=== PATIENT | male | born 1995 | race Caucasian/White ===

== ENCOUNTER 2017-09-14 17:38 | Emergency (ER) | payer SELFPAY ==
[~2017-09-14 17:38] MED LIST: ALB0.5; AMO875 PO; CEP500 PO; FEXO30TA36 PO; HYDR-3140 PO; IBU200 PO; LOR5/325 PO; TRA50 PO
--- NOTE | 2017-09-14 18:27 | ER Report ---
History and Physical Time Seen By MD: 18:27 Hx. of Stated Complaint: pain started in left groin/hip/abd area. painful to sit or stand. any mpotion makes it worse. painful to urine for about a month HPI/ROS CHIEF COMPLAINT: groin, testicular and abdominal pain HISTORY OF PRESENT ILLNESS: This is a 22 year old male. He is having left sided groin, lower abdomen and left testicular pain. This started yesterday. Slowly worsening. No radiation. Worsens with movement. No masses in the scrotum or testicle, but left side seems to be riding higher. No injury. No prior history or abdominal or testicular problems. Family history of renal cancer. No fevers or chills. No changes in bowel or bladder function. No increased pain with bowel movement. Specifically no blood in stool or urine and no diarrhea. Does have some increased pain with urination. Had an erection today, which seemed to worsen pain. No history of sexually transmitted disease. Sexually active with one partner, his fiance. She has had recent STD testing which was negative. Allergies: Coded Allergies: No Known Drug Allergies (Verified , 09/14/17) Home Meds Active Scripts Oxycodone Hcl/Acetaminophen (PERCOCET 5-325 MG TABLET) 1 Each Tablet, 1 EACH PO Q4H Y for PAIN, #10 TAB 0 Refills Prov:ERI ZAMBRANO MD 09/14/17 Levofloxacin 500 Mg Tab (LEVAQUIN 500 MG TAB) 500 Mg Tablet, 500 MG PO QDAY, # 10 TAB 0 Refills Prov:ERI ZAMBRANO MD 09/14/17 Reviewed Nurses Notes: Yes Hx Smoking: Yes Smoking Status: Current: Every Day Smoker Hx Substance Use Disorder: Yes ([facility]) Hx Alcohol Use: Yes (binges) Constitutional Vital Sign - Last 24 Hours 09/14/17 09/14/17 09/14/17 09/14/17 18:08 18:10 18:10 18:23 Temp 100.0 Pulse ??? 118 117 Resp 16 B/P (MAP) 146/93 146/93 (110) Pulse Ox 97 95 O2 Delivery Room Air 09/14/17 09/14/17 09/14/17 09/14/17 18:30 18:38 18:53 18:58 Pulse 115 ??? 98 B/P (MAP) 134/83 (100) Pulse Ox 94 97 09/14/17 09/14/17 19:00 19:30 B/P (MAP) 129/87 (101) 120/81 (94) Intake and Output 09/14/17 09/14/17 09/15/17 15:00 23:00 07:00 Intake Total 900 ml Balance 900 ml Physical Exam General Appearance: The patient is alert. No acute distress. Eyes: Pupils are equal, round. No pallor, icterus or injection. ENT: Mucous membranes are moist. Respiratory: Lungs are clear to auscultation. Cardiovascular: Regular rate and rhythm. No murmurs, gallops or rubs. Gastrointestinal: Abdomen with discomfort in the left lower abdomen with palpation, but abdomen is soft. No bulging of the abdomen/inguinal area with cough. Nondistended. No masses or organomegaly. Normal active bowel sounds. No costovertebral angle tenderness with percussion. Genitourinary: Tenderness and fullness with palpation over the epididymis. No pain in the rest of the testicle on left. Right side is normal and non-tender. No bulging into the scrotum/inguinal canal with cough. Some mild discomfort in the upper scrotum on the left, but no discrete masses, but fullness in the upper scrotum bilaterally. Normal penis, no rashes or discharge. Neurological: Alert and oriented x3. Skin: Warm and dry. No rashes. Musculoskeletal: No pain below the inguinal ligament or scrotum into the musculoskeletal area. DIFFERENTIAL DIAGNOSIS: After history and physical exam, differential diagnosis was considered for pain in the left abdomen/groin/testicle, will obtain testicular ultrasound, labs and CT scan abd/pelvis. Medical Decision Making Data Points Result Diagram: 09/14/17185209/14/173 Laboratory Hematology Test 09/14/17 18:53 09/14/17 19:35 Red Blood Count 5.09 M/uL (4.00-5.60) Mean Corpuscular Volume 96.5 fL (80.0-96.0) Mean Corpuscular Hemoglobin 32.7 pg (26.0-33.0) Mean Corpuscular Hemoglobin Concent 33.9 g/dL (32.0-36.0) Red Cell Distribution Width 13.6 % (11.5-14.5) Mean Platelet Volume 8.0 fL (7.2-11.1) Neutrophils (%) (Auto) 77.4 % (39.4-72.5) Lymphocytes (%) (Auto) 13.7 % (17.6-49.6) Monocytes (%) (Auto) 7.0 % (4.1-12.4) Eosinophils (%) (Auto) 1.5 % (0.4-6.7) Basophils (%) (Auto) 0.4 % (0.3-1.4) Nucleated RBC Relative Count (auto) 0.0 /100WBC Neutrophils # (Auto) 10.7 K/uL (2.0-7.4) Lymphocytes # (Auto) 1.9 K/uL (1.3-3.6) Monocytes # (Auto) 1.0 K/uL (0.3-1.0) Eosinophils # (Auto) 0.2 K/uL (0.0-0.5) Basophils # (Auto) 0.1 K/uL (0.0-0.1) Nucleated RBC Absolute Count (auto) 0.00 K/uL Sodium Level 138 mmol/L (137-145) Potassium Level 4.2 mmol/L (3.5-5.0) Chloride Level 100 mmol/L (98-107) Carbon Dioxide Level 26 mmol/L (22-30) Blood Urea Nitrogen 9 mg/dl (9-21) Creatinine 0.80 mg/dl (0.66-1.25) Glomerular Filtration Rate Calc > 60.0 Random Glucose 88 mg/dl (75-110) Calcium Level 9.3 mg/dl (8.4-10.2) Total Bilirubin 0.3 mg/dl (0.2-1.3) Aspartate Amino Transf (AST/SGOT) 22 U/L (0-35) Alanine Aminotransferase (ALT/SGPT) 38 U/L (0-56) Alkaline Phosphatase 92 U/L (0-126) Total Protein 7.7 gm/dl (6.3-8.2) Albumin 4.5 g/dl (3.5-5.0) Urine Color Yellow Urine Clarity Clear Urine pH 7.0 pH (4.8-9.5) Urine Specific [place] 1.009 Urine Protein Negative mg/dL (NEGATIVE) Urine Glucose (UA) Negative mg/dL (NEGATIVE) Urine Ketones Negative mg/dL (NEGATIVE) Urine Blood Negative (NEGATIVE) Urine Nitrite Negative (NEGATIVE) Urine Bilirubin Negative (NEGATIVE) Urine Urobilinogen Negative mg/dL (0.2-1.9) Urine Leukocyte Esterase Trace (NEGATIVE) Urine RBC 2 /HPF (0-2/HPF) Urine WBC 8 /HPF (0-5/HPF) Urine Squamous Epithelial Cells None /LPF (</=FEW) Urine Bacteria Negative /HPF (NONE-FEW) Urine Mucus None /HPF (NONE-FEW) Chemistry Test 09/14/17 18:53 09/14/17 19:35 White Blood Count 13.8 k/uL (4.5-11.0) Red Blood Count 5.09 M/uL (4.00-5.60) Hemoglobin 16.6 g/dL (14.0-18.0) Hematocrit 49.1 % (42.0-52.0) Mean Corpuscular Volume 96.5 fL (80.0-96.0) Mean Corpuscular Hemoglobin 32.7 pg (26.0-33.0) Mean Corpuscular Hemoglobin Concent 33.9 g/dL (32.0-36.0) Red Cell Distribution Width 13.6 % (11.5-14.5) Platelet Count 192 K/uL (150-450) Mean Platelet Volume 8.0 fL (7.2-11.1) Neutrophils (%) (Auto) 77.4 % (39.4-72.5) Lymphocytes (%) (Auto) 13.7 % (17.6-49.6) Monocytes (%) (Auto) 7.0 % (4.1-12.4) Eosinophils (%) (Auto) 1.5 % (0.4-6.7) Basophils (%) (Auto) 0.4 % (0.3-1.4) Nucleated RBC Relative Count (auto) 0.0 /100WBC Neutrophils # (Auto) 10.7 K/uL (2.0-7.4) Lymphocytes # (Auto) 1.9 K/uL (1.3-3.6) Monocytes # (Auto) 1.0 K/uL (0.3-1.0) Eosinophils # (Auto) 0.2 K/uL (0.0-0.5) Basophils # (Auto) 0.1 K/uL (0.0-0.1) Nucleated RBC Absolute Count (auto) 0.00 K/uL Glomerular Filtration Rate Calc > 60.0 Calcium Level 9.3 mg/dl (8.4-10.2) Total Bilirubin 0.3 mg/dl (0.2-1.3) Aspartate Amino Transf (AST/SGOT) 22 U/L (0-35) Alanine Aminotransferase (ALT/SGPT) 38 U/L (0-56) Alkaline Phosphatase 92 U/L (0-126) Total Protein 7.7 gm/dl (6.3-8.2) Albumin 4.5 g/dl (3.5-5.0) Urine Color Yellow Urine Clarity Clear Urine pH 7.0 pH (4.8-9.5) Urine Specific [place] 1.009 Urine Protein Negative mg/dL (NEGATIVE) Urine Glucose (UA) Negative mg/dL (NEGATIVE) Urine Ketones Negative mg/dL (NEGATIVE) Urine Blood Negative (NEGATIVE) Urine Nitrite Negative (NEGATIVE) Urine Bilirubin Negative (NEGATIVE) Urine Urobilinogen Negative mg/dL (0.2-1.9) Urine Leukocyte Esterase Trace (NEGATIVE) Urine RBC 2 /HPF (0-2/HPF) Urine WBC 8 /HPF (0-5/HPF) Urine Squamous Epithelial Cells None /LPF (</=FEW) Urine Bacteria Negative /HPF (NONE-FEW) Urine Mucus None /HPF (NONE-FEW) Urinalysis Test 09/14/17 19:35 Urine Color Yellow Urine Clarity Clear Urine pH 7.0 pH (4.8-9.5) Urine Specific [place] 1.009 Urine Protein Negative mg/dL (NEGATIVE) Urine Glucose (UA) Negative mg/dL (NEGATIVE) Urine Ketones Negative mg/dL (NEGATIVE) Urine Blood Negative (NEGATIVE) Urine Nitrite Negative (NEGATIVE) Urine Bilirubin Negative (NEGATIVE) Urine Urobilinogen Negative mg/dL (0.2-1.9) Urine Leukocyte Esterase Trace (NEGATIVE) Urine RBC 2 /HPF (0-2/HPF) Urine WBC 8 /HPF (0-5/HPF) Urine Squamous Epithelial Cells None /LPF (</=FEW) Urine Bacteria Negative /HPF (NONE-FEW) Urine Mucus None /HPF (NONE-FEW) EKG/Imaging Imaging COMPUTED TOMOGRAPHY OF THE Abdomen and Pelvis with CONTRAST INDICATION: Left groin and abdominal pain. TECHNIQUE: Contiguous axial 3.[address] images were obtained through the abdomen and pelvis after the administration of 75 cc Isovue-370. Coronal and sagittal reformatted images were submitted. COMPARISON: CT abdomen and pelvis of December 28, 2010. FINDINGS: Lung bases: Clear. Liver and hepatic vasculature: The left lobe is elongated, a normal variant. No focal lesion. No ascites. Gallbladder and bile ducts: Normal gallbladder. Spleen: Normal Pancreas: Mild prominence of the pancreatic duct but no obstructive mass or stone no suggestion of pancreatitis. Adrenals: Normal Kidneys, ureters and bladder: No hydronephrosis or collecting system obstruction. Circumferential bladder wall thickening is noted. Retroperitoneum and aorta: Normal caliber aorta. No adenopathy. GI tract, mesentery and peritoneum: The bowel obstruction. No free fluid or free air. Several small bowel loops are fluid-filled and low abdomen, a nonspecific finding. Prostate: Grossly unremarkable prostate. A few vessels are prominent within the left scrotum, and there appears to be a small hydrocele. Small right-sided hydrocele is present as well. Bones and soft tissues: No acute osseous abnormality. IMPRESSION: 1. A few small bowel loops in the low pelvis are fluid-filled but not frankly distended. Finding is nonspecific and may be incidental. 2. Circumferential bladder wall thickening. Correlate with urinalysis. 3. A few vessels are prominent within the left scrotum, and there is a small left-sided hydrocele. There also appears to be a small right hydrocele. One of the following dose optimization techniques was utilized in the performance of this exam: Automated exposure control; adjustment of the mA and/ or kV according to the patient's size; or use of an iterative reconstruction technique. Specific details can be referenced in the facility's radiology CT exam operational policy. Report Dictated By: Josh Montes MD at 09/14/2017 8:03 PM INDICATION: left groin, abd, testicular pain. DATE: 09/14/2017 8:20 PM. TECHNIQUE: Testicular ultrasound. COMPARISON: CT abdomen and pelvis of the same day FINDINGS: The right testis measures 4.7 x 2.6 x 3.7 cm. Echogenicity is normal. There is a small hydrocele on the right. Normal Doppler waveform. The right epididymal head measures 0.8 cm. The left testis measures 4.0 x 2.5 x 3.6 cm. Normal Doppler waveform. There is a small hydrocele. The left testicle is hyperemic with respect to the right. Several veins are prominent within the left scrotum. The left epididymal head measures 1.3 cm and is hyperemic. IMPRESSION: 1. Hyperemia of the left testis and left epididymal head can be seen with epididymoorchitis. 2. Small varicocele on the left. 3. Bilateral small hydroceles. Report Dictated By: Josh Montes MD at 09/14/2017 8:20 PM ED Course/Re-evaluation Clinical Indication for ER IV: IV Access ED Course After my initial evaluation, it appears that the patient has epididymitis. Ultrasound and CT scan as noted above. Labs show a few cellular changes in the urine. Chlamydia and GC testing sent. Mild leukocytosis. Started Levaquin and using Ibuprofen and Percocet as needed for pain. If not improving, then will need follow-up with urology. Discussed the results and recommendations with the patient. Decision to Disposition Date: Sep 14, 2017 Decision to Disposition Time: 20:45 Depart Departure Latest Vital Signs Vital Signs Date Time Temp Pulse Resp B/P (MAP) Pulse Ox O2 Delivery O2 Flow Rate FiO2 09/14/17 19:30 120/81 (94) 09/14/17 18:58 98 97 09/14/17 18:10 100.0 16 Room Air Impression: Primary Impression: Epididymitis Condition: Improved Disposition: HOME OR SELF-CARE New Scripts Oxycodone Hcl/Acetaminophen (PERCOCET 5-325 MG TABLET) 1 Each Tablet 1 EACH PO Q4H Y for PAIN, #10 TAB 0 Refills Prov: ERI ZAMBRANO MD 09/14/17 Levofloxacin 500 Mg Tab (LEVAQUIN 500 MG TAB) 500 Mg Tablet 500 MG PO QDAY, #10 TAB 0 Refills Prov: ERI ZAMBRANO MD 09/14/17 Patient Instructions: Epididymitis (ED) Additional Instructions: Take the antibiotic Levofloxacin 500mg once a day for 10 days. Take Ibuprofen 200mg over the counter tablets, take 4 tablets every 8 hours as needed for pain. Percocet 5/325, one every 4 hours as needed for severe pain. If no improving, would recommend follow-up with Urology, Dr. Guzman or Dr. Zuniga. ERI ZAMBRANO MD Sep 14, 2017 18:27
[2017-09-14] MEDS ORDERED: MORPHINE 4 MG/ML SDV IVP ONE (18:35)
[2017-09-14] MEDS ORDERED: NS(*) 0.9% 1000 ML BAG 1,000 ML IV ONE (18:35)
[2017-09-14] MEDS ORDERED: ONDANSETRON 4 MG/2 ML VIAL IVP ONE (18:35)
[2017-09-14 19:00] LABS: PLATELET COUNT, AUTOMATED 192 K/uL (150-450)
[2017-09-14] MEDS ORDERED: IOPAMIDOL 76% 75 ML INFUS BTL 75 ML ONE (19:02)
[2017-09-14 19:30] VITALS: BP 120/81
--- NOTE | 2017-09-14 20:24 | RADIOLOGY IMAGING REPORT ---
FACILITY: [facility] PATIENT NAME: Khari Powers : 1995 MR: [id number] V: [id number] EXAM DATE: ORDERING PHYSICIAN: ERI ZAMBRANO TECHNOLOGIST: Location: [facility] [place] Patient: Khari Powers : 1995 Visit/Account:[id number] Date of Sevice: 09/14/2017 COMPUTED TOMOGRAPHY OF THE Abdomen and Pelvis with CONTRAST INDICATION: Left groin and abdominal pain. TECHNIQUE: Contiguous axial 3.[address] images were obtained through the abdomen and pelvis after the administration of 75 cc Isovue-370. Coronal and sagittal reformatted images were submitted. COMPARISON: CT abdomen and pelvis of December 28, 2010. FINDINGS: Lung bases: Clear. Liver and hepatic vasculature: The left lobe is elongated, a normal variant. No focal lesion. No asc ites. Gallbladder and bile ducts: Normal gallbladder. Spleen: Normal Pancreas: Mild prominence of the pancreatic duct but no obstructive mass or stone no suggestion of p ancreatitis. Adrenals: Normal Kidneys, ureters and bladder: No hydronephrosis or collecting system obstruction. Circumferential bl adder wall thickening is noted. Retroperitoneum and aorta: Normal caliber aorta. No adenopathy. GI tract, mesentery and peritoneum: The bowel obstruction. No free fluid or free air. Several small b owel loops are fluid-filled and low abdomen, a nonspecific finding. Prostate: Grossly unremarkable prostate. A few vessels are prominent within the left scrotum, and the re appears to be a small hydrocele. Small right-sided hydrocele is present as well. Bones and soft tissues: No acute osseous abnormality. IMPRESSION: 1. A few small bowel loops in the low pelvis are fluid-filled but not frankly distended. Finding is n onspecific and may be incidental. 2. Circumferential bladder wall thickening. Correlate with urinalysis. 3. A few vessels are prominent within the left scrotum, and there is a small left-sided hydrocele. Th ere also appears to be a small right hydrocele. One of the following dose optimization techniques was utilized in the performance of this exam: Autom ated exposure control; adjustment of the mA and/or kV according to the patient's size; or use of an i terative reconstruction technique. Specific details can be referenced in the facility's radiology C T exam operational policy. Report Dictated By: Josh Montes MD at 09/14/2017 8:03 PM Report E-Signed By: Josh Montes MD at 09/14/2017 8:20 PM WSN:[id number]
--- NOTE | 2017-09-14 20:35 | RADIOLOGY IMAGING REPORT ---
FACILITY: [facility] - [place] PATIENT NAME: Khari Powers : 1995 MR: [id number] V: [id number] EXAM DATE: ORDERING PHYSICIAN: ERI ZAMBRANO TECHNOLOGIST: Location: [facility] [place] Patient: Khari Powers : 1995 Visit/Account:[id number] Date of Sevice: 09/14/2017 INDICATION: left groin, abd, testicular pain. DATE: 09/14/2017 8:20 PM. TECHNIQUE: Testicular ultrasound. COMPARISON: CT abdomen and pelvis of the same day FINDINGS: The right testis measures 4.7 x 2.6 x 3.7 cm. Echogenicity is normal. There is a small hydrocele on t he right. Normal Doppler waveform. The right epididymal head measures 0.8 cm. The left testis measures 4.0 x 2.5 x 3.6 cm. Normal Doppler waveform. There is a small hydrocele. The left testicle is hyperemic with respect to the right. Several veins are prominent within the left sc rotum. The left epididymal head measures 1.3 cm and is hyperemic. IMPRESSION: 1. Hyperemia of the left testis and left epididymal head can be seen with epididymoorchitis. 2. Small varicocele on the left. 3. Bilateral small hydroceles. Report Dictated By: Josh Montes MD at 09/14/2017 8:20 PM Report E-Signed By: Josh Montes MD at 09/14/2017 8:31 PM WSN:[id number]
[2017-09-14] MEDS ORDERED: oxyCODONE/ACETAMIN 5/325MG TH 2 TAB/BOTTLE PO ONE (20:45)
[2017-09-14] MEDS ORDERED: LEVOFLOXACIN 500 MG TAB PO ONE (20:45)
[2017-09-14] MEDS ORDERED: OXYC-865 PO (20:46)
[2017-09-14] MEDS ORDERED: LEVO-85 PO (20:46)
== END 2017-09-14 21:00 | disposition home or self-care (01) ==
LOC: ER 18:24
DX: N45.1 Epididymitis (principal); D72.829 Elevated white blood cell count, unspecified; I86.1 Scrotal varices; N43.3 Hydrocele, unspecified
CPT/HCPCS: 74177; 76870; 81001; 85025; 87088; 87491; 87591; 96361; 96374; 96375; 99284; J2270; J2405; J7030; Q9967; 82040; 82247; 82310; 82374; 82435; 82565; 82947; 84075; 84132; 84155; 84295; 84450; 84460; 84520

== ENCOUNTER 2017-09-16 17:01 | Emergency (ER) | payer SELFPAY ==
[~2017-09-16 17:01] MED LIST changes: +LEVO-85 PO; +OXYC-865 PO
--- NOTE | 2017-09-16 17:13 | ER Report ---
History and Physical Time Seen By MD: 17:12 (BELEN FRYE DO) HPI/ROS CHIEF COMPLAINT: left testicular/groin pain HISTORY OF PRESENT ILLNESS: PT started with left lower quadrant/testicular pain two days ago. pt was seen in the emergency room and had blood, urine, CT and US. Pt was dx with epididymitis and started on levaquin. Pt came back due to pain is worse in left groin area and not improving. Pt having pain with walking and any palpation of area. Pt denies any change in bm or fevers. Has pain with urination. no nausea. Pain starts in testicle and radiates to llq. Pt has had intercourse since his last visit and denies pain with intercourse/ejaculation. REVIEW OF SYSTEMS: Constitutional: No fever, no chills. Eyes: No discharge. ENT: No sore throat. Cardiovascular: No chest pain, no palpitations. Respiratory: No cough, no shortness of breath. Gastrointestinal: + abdominal pain, no vomiting. Genitourinary: No hematuria. +dysuria Musculoskeletal: No back pain. Skin: No rashes. Neurological: No headache. (BELEN FRYE DO) Allergies: Coded Allergies: No Known Drug Allergies (Verified , 09/16/17) Home Meds Active Scripts Hydrocodone Bit/Acetaminophen (NORCO 5-325 TABLET) 1 Each Tablet, 1 EACH PO Q4H Y for PAIN, #15 TAB Prov:TANISHA DASH DO 09/16/17 Amoxicillin/Pot Clav 875-125 Mg Tab (AUGMENTIN 875-125 TABLET) 1 Each Tablet, 1 TAB PO Q12H for infection, #14 TAB TAKE ONE TABLET BY MOUTH EVERY 12 HOURS Prov:TANISHA DASH DO 09/16/17 Doxycycline Hyclate (DOXYCYCLINE HYCLATE) 100 Mg Capsule, 100 MG PO BID for infection, #20 CAPSULE Prov:TANISHA DASH DO 09/16/17 Oxycodone Hcl/Acetaminophen (PERCOCET 5-325 MG TABLET) 1 Each Tablet, 1 EACH PO Q4H Y for PAIN, #10 TAB 0 Refills Prov:ERI ZAMBRANO MD 09/14/17 Levofloxacin 500 Mg Tab (LEVAQUIN 500 MG TAB) 500 Mg Tablet, 500 MG PO QDAY, # 10 TAB 0 Refills Prov:ERI ZAMBRANO MD 09/14/17 Past Medical/Surgical History Pt denies any pmhx or pshx. No hx of std (TIFFANIEGILABELEN Ilia BATES) Reviewed Nurses Notes: Yes Old Medical Records Reviewed: Yes (UDAYBELEN Morillo DO) Hx Smoking: Yes Smoking Status: Current: Every Day Smoker Hx Substance Use Disorder: Yes (arely) Hx Alcohol Use: Yes (binges) (UDAYBELEN Morillo DO) Constitutional Vital Sign - Last 24 Hours 09/16/17 09/16/17 09/16/17 09/16/17 17:16 17:17 17:30 17:46 Temp 98.1 Pulse 101 103 Resp 16 B/P (MAP) 137/88 137/88 (104) 122/86 (98) Pulse Ox 95 94 O2 Delivery Room Air 09/16/17 09/16/17 09/16/17 09/16/17 17:51 18:01 18:06 18:21 Pulse 105 99 B/P (MAP) 113/87 (96) Pulse Ox 95 94 99 09/16/17 09/16/17 09/16/17 09/16/17 18:30 18:36 18:51 19:00 Pulse 93 98 B/P (MAP) 108/84 (92) 118/78 (91) Pulse Ox 94 95 09/16/17 09/16/17 19:05 19:09 Pulse 106 85 Resp 16 B/P (MAP) 118/72 (87) Pulse Ox 93 92 O2 Delivery Room Air (TANISHA DASH DO) Physical Exam General Appearance: The patient is alert, has no immediate need for airway protection and no signs of toxicity. Eyes: Pupils equal and round no pallor or injection, EOMI ENT: no pharyngeal erythema or exudates, Mucous membranes are moist Respiratory: There are no retractions, lungs are clear to auscultation. Cardiovascular: Regular rate and rhythm. pulses are equal and symmetrical Gastrointestinal: Abdomen + tender LLQ, no masses, bowel sounds normal, no rigidity or rebound : pt is non circumsized, pt is tender left testicle posterior aspect; + tenderness in left inguinal ring but no palpable hernia; + cremesteric reflex Neurological: Cranial nerves II-XII grossly intact, no sensory or motor loss Skin: Warm and dry, no rashes. Musculoskeletal: Neck is supple non tender, no vertebral tenderness Extremities are nontender, nonswollen and have full range of motion. DIFFERENTIAL DIAGNOSIS: After history and physical exam differential diagnosis was considered for uti, epidiymitis, torsion, orchitis (LAURORA,BELEN V DO) Medical Decision Making Data Points Result Diagram: 09/16/17 1725 09/16/17 1725 Laboratory Hematology Test 09/16/17 17:12 09/16/17 17:25 Urine Color Elissa Urine Clarity Slightly-cloudy Urine pH 5.0 pH (4.8-9.5) Urine Specific Mcleod 1.029 Urine Protein 30 mg/dL (NEGATIVE) Urine Glucose (UA) Negative mg/dL (NEGATIVE) Urine Ketones Negative mg/dL (NEGATIVE) Urine Blood Negative (NEGATIVE) Urine Nitrite Negative (NEGATIVE) Urine Bilirubin Negative (NEGATIVE) Urine Urobilinogen 2.0 mg/dL (0.2-1.9) Urine Leukocyte Esterase Trace (NEGATIVE) Urine RBC 3 /HPF (0-2/HPF) Urine WBC 11 /HPF (0-5/HPF) Urine Squamous Epithelial Cells None /LPF (</=FEW) Urine Bacteria Negative /HPF (NONE-FEW) Urine Mucus Few /HPF (NONE-FEW) Red Blood Count 5.22 M/uL (4.00-5.60) Mean Corpuscular Volume 96.4 fL (80.0-96.0) Mean Corpuscular Hemoglobin 32.8 pg (26.0-33.0) Mean Corpuscular Hemoglobin Concent 34.0 g/dL (32.0-36.0) Red Cell Distribution Width 13.2 % (11.5-14.5) Mean Platelet Volume 8.0 fL (7.2-11.1) Neutrophils (%) (Auto) 71.5 % (39.4-72.5) Lymphocytes (%) (Auto) 17.3 % (17.6-49.6) Monocytes (%) (Auto) 9.6 % (4.1-12.4) Eosinophils (%) (Auto) 1.4 % (0.4-6.7) Basophils (%) (Auto) 0.2 % (0.3-1.4) Nucleated RBC Relative Count (auto) 0.0 /100WBC Neutrophils # (Auto) 8.5 K/uL (2.0-7.4) Lymphocytes # (Auto) 2.1 K/uL (1.3-3.6) Monocytes # (Auto) 1.1 K/uL (0.3-1.0) Eosinophils # (Auto) 0.2 K/uL (0.0-0.5) Basophils # (Auto) 0.0 K/uL (0.0-0.1) Nucleated RBC Absolute Count (auto) 0.00 K/uL Sodium Level 140 mmol/L (137-145) Potassium Level 4.0 mmol/L (3.5-5.0) Chloride Level 100 mmol/L (98-107) Carbon Dioxide Level 28 mmol/L (22-30) Blood Urea Nitrogen 10 mg/dl (9-21) Creatinine 0.90 mg/dl (0.66-1.25) Glomerular Filtration Rate Calc > 60.0 Random Glucose 81 mg/dl (75-110) Calcium Level 9.9 mg/dl (8.4-10.2) Total Bilirubin 0.6 mg/dl (0.2-1.3) Aspartate Amino Transf (AST/SGOT) 22 U/L (0-35) Alanine Aminotransferase (ALT/SGPT) 29 U/L (0-56) Alkaline Phosphatase 101 U/L (0-126) Total Protein 8.1 gm/dl (6.3-8.2) Albumin 4.5 g/dl (3.5-5.0) Chemistry Test 09/16/17 17:12 09/16/17 17:25 Urine Color Elissa Urine Clarity Slightly-cloudy Urine pH 5.0 pH (4.8-9.5) Urine Specific Mcleod 1.029 Urine Protein 30 mg/dL (NEGATIVE) Urine Glucose (UA) Negative mg/dL (NEGATIVE) Urine Ketones Negative mg/dL (NEGATIVE) Urine Blood Negative (NEGATIVE) Urine Nitrite Negative (NEGATIVE) Urine Bilirubin Negative (NEGATIVE) Urine Urobilinogen 2.0 mg/dL (0.2-1.9) Urine Leukocyte Esterase Trace (NEGATIVE) Urine RBC 3 /HPF (0-2/HPF) Urine WBC 11 /HPF (0-5/HPF) Urine Squamous Epithelial Cells None /LPF (</=FEW) Urine Bacteria Negative /HPF (NONE-FEW) Urine Mucus Few /HPF (NONE-FEW) White Blood Count 11.9 k/uL (4.5-11.0) Red Blood Count 5.22 M/uL (4.00-5.60) Hemoglobin 17.1 g/dL (14.0-18.0) Hematocrit 50.3 % (42.0-52.0) Mean Corpuscular Volume 96.4 fL (80.0-96.0) Mean Corpuscular Hemoglobin 32.8 pg (26.0-33.0) Mean Corpuscular Hemoglobin Concent 34.0 g/dL (32.0-36.0) Red Cell Distribution Width 13.2 % (11.5-14.5) Platelet Count 191 K/uL (150-450) Mean Platelet Volume 8.0 fL (7.2-11.1) Neutrophils (%) (Auto) 71.5 % (39.4-72.5) Lymphocytes (%) (Auto) 17.3 % (17.6-49.6) Monocytes (%) (Auto) 9.6 % (4.1-12.4) Eosinophils (%) (Auto) 1.4 % (0.4-6.7) Basophils (%) (Auto) 0.2 % (0.3-1.4) Nucleated RBC Relative Count (auto) 0.0 /100WBC Neutrophils # (Auto) 8.5 K/uL (2.0-7.4) Lymphocytes # (Auto) 2.1 K/uL (1.3-3.6) Monocytes # (Auto) 1.1 K/uL (0.3-1.0) Eosinophils # (Auto) 0.2 K/uL (0.0-0.5) Basophils # (Auto) 0.0 K/uL (0.0-0.1) Nucleated RBC Absolute Count (auto) 0.00 K/uL Glomerular Filtration Rate Calc > 60.0 Calcium Level 9.9 mg/dl (8.4-10.2) Total Bilirubin 0.6 mg/dl (0.2-1.3) Aspartate Amino Transf (AST/SGOT) 22 U/L (0-35) Alanine Aminotransferase (ALT/SGPT) 29 U/L (0-56) Alkaline Phosphatase 101 U/L (0-126) Total Protein 8.1 gm/dl (6.3-8.2) Albumin 4.5 g/dl (3.5-5.0) Urinalysis Test 09/16/17 17:12 Urine Color Elissa Urine Clarity Slightly-cloudy Urine pH 5.0 pH (4.8-9.5) Urine Specific Mcleod 1.029 Urine Protein 30 mg/dL (NEGATIVE) Urine Glucose (UA) Negative mg/dL (NEGATIVE) Urine Ketones Negative mg/dL (NEGATIVE) Urine Blood Negative (NEGATIVE) Urine Nitrite Negative (NEGATIVE) Urine Bilirubin Negative (NEGATIVE) Urine Urobilinogen 2.0 mg/dL (0.2-1.9) Urine Leukocyte Esterase Trace (NEGATIVE) Urine RBC 3 /HPF (0-2/HPF) Urine WBC 11 /HPF (0-5/HPF) Urine Squamous Epithelial Cells None /LPF (</=FEW) Urine Bacteria Negative /HPF (NONE-FEW) Urine Mucus Few /HPF (NONE-FEW) (TANISHA DASH DO) Microbiology Microbiology Date/Time Source Procedure Growth Status 09/16/17 17:12 Clean Catch Midstream Ur Urine Culture - Preliminary NO GROWTH AFTER 1 DAY, REINCUBATED Resulted (TANISHA DASH DO) EKG/Imaging Imaging Results: Ultrasound of the testicular ultrasound was obtained. The results of the study are Testicular ultrasound. HISTORY: Left testicular pain, rule out torsion or inflammation, patient on antibiotics. COMPARISON: 09/14/2017. Right testicular length: 4.9 cm. Right intratesticular blood flow: Normal. Right hydrocele: Yes. Right varicocele: No. Right epididymal head thickness: 0.8 cm. No right intratesticular masses. Left testicular length: 4.3 cm. Left testicular blood flow: Normal. Left hydrocele: Yes. Left varicocele: Yes. Left epididymal head thickness: 1.4 cm. No left intratesticular masses. The left epididymal body and tail are thickened and hyperemic. Several mildly prominent veins are present along the left epididymal tail. A small to moderate amount of fluid surrounds the left testis, slightly increased compared to previous. A small amount of fluid surrounds the right testis, unchanged. IMPRESSION: Left epididymitis. Small to moderate left hydrocele, increased compared to previous. Small left varicocele. Small right hydrocele. Otherwise negative for evidence of testicular torsion. The study was read by the radiologist. I viewed the images myself on the PACS system. (TANISHA DASH DO) ED Course/Re-evaluation ED Course 09/16/2017 5:32:05 pm Reviewed old chart. pts urine cultures was contaminated. new ua sent. Will hold off culture until no squamous cells are identified. Pt was instructed on clean catch. Pts gc/chlamydia is still pending. Will call in US 09/16/2017 6:03:18 pm Signed out to Dr. Dash Decision to Disposition Date: Sep 16, 2017 (UDAYBELENSA Ilia BATES) ED Course Care was assumed at shift change with diagnostic ultrasound pending. Ultrasound shows little significant change. The hydrocele is slightly enlarged. Patient seems to be failing Levaquin. We'll switch to Augmentin and doxycycline. Patient was given additional Percocet for pain relief. Patient's advised to take ibuprofen 800 mg 3 times daily. He is advised warm soaks or warm compresses. Patient was advised to follow-up with urology on Tuesday if unimproved. He was provided with both urologists phone numbers. Decision to Disposition Date: Sep 16, 2017 Decision to Disposition Time: 18:58 (TANISHA DASH DO) Depart Departure Latest Vital Signs Vital Signs Date Time Temp Pulse Resp B/P (MAP) Pulse Ox O2 Delivery O2 Flow Rate FiO2 09/16/17 19:09 85 16 118/72 (87) 92 Room Air 09/16/17 17:16 98.1 (TANISHA DASH DO) Impression: Primary Impression: Epididymitis Additional Impression: Hydrocele Condition: Improved Disposition: HOME OR SELF-CARE Referrals: BLU WELDON MD, LYLE MD New Scripts Hydrocodone Bit/Acetaminophen (NORCO 5-325 TABLET) 1 Each Tablet 1 EACH PO Q4H Y for PAIN, #15 TAB Prov: TANISHA DASH DO 09/16/17 Amoxicillin/Pot Clav 875-125 Mg Tab (AUGMENTIN 875-125 TABLET) 1 Each Tablet 1 TAB PO Q12H for infection, #14 TAB TAKE ONE TABLET BY MOUTH EVERY 12 HOURS Prov: TANISHA DASH DO 09/16/17 Doxycycline Hyclate (DOXYCYCLINE HYCLATE) 100 Mg Capsule 100 MG PO BID for infection, #20 CAPSULE Prov: TANISHA DASH DO 09/16/17 Patient Instructions: Epididymitis (ED), Hydrocele (ED) Additional Instructions: Take ibuprofen 800 mg 3 times daily with food Perform warm soaks or apply a heating pad on medium to urogenital area Follow-up with urology early next week. Call 1 of the 2 urologist, Dr. Weldon or Dr. Guzman and make an appointment on Tuesday morning Problem Qualifiers Additional Impression: Hydrocele Hydrocele type: unspecified Qualified Codes: N43.3 - Hydrocele, unspecified BELEN FRYE V DO Sep 16, 2017 17:12 TANISHA DASH DO Sep 16, 2017 19:02
[2017-09-16] MEDS ORDERED: KETOROLAC 30 MG/ML VIAL IVP ONE (17:25)
[2017-09-16] MEDS ORDERED: MORPHINE 4 MG/ML SDV IVP ONE (17:25)
[2017-09-16 17:43] LABS: PLATELET COUNT, AUTOMATED 191 K/uL (150-450)
--- NOTE | 2017-09-16 18:50 | RADIOLOGY IMAGING REPORT ---
FACILITY: [facility] [place]IENT NAME: Khari Powers : 1995 MR: [id number] V: [id number] EXAM DATE: ORDERING PHYSICIAN: BELEN FRYE TECHNOLOGIST: Location: [facility] [place] Patient: Khari Powers : 1995 Visit/Account:[id number] Date of Sevice: 09/16/2017 Testicular ultrasound. HISTORY: Left testicular pain, rule out torsion or inflammation, patient on antibiotics. COMPARISON: 09/14/2017. Right testicular length: 4.9 cm. Right intratesticular blood flow: Normal. Right hydrocele: Yes. Right varicocele: No. Right epididymal head thickness: 0.8 cm. No right intratesticular masses. Left testicular length: 4.3 cm. Left testicular blood flow: Normal. Left hydrocele: Yes. Left varicocele: Yes. Left epididymal head thickness: 1.4 cm. No left intratesticular masses. The left epididymal body and tail are thickened and hyperemic. Several mildly prominent veins are pre sent along the left epididymal tail. A small to moderate amount of fluid surrounds the left testis, s lightly increased compared to previous. A small amount of fluid surrounds the right testis, unchanged . IMPRESSION: Left epididymitis. Small to moderate left hydrocele, increased compared to previous. Small left varicocele. Small right hydrocele. Otherwise negative for evidence of testicular torsion. Results were discussed with Dr. Dash at 09/16/2017 6:44 PM. Report Dictated By: Oscar Montenegro MD at 09/16/2017 6:39 PM Report E-Signed By: Oscar Montenegro MD at 09/16/2017 6:47 PM WSN:[id number]
[2017-09-16] MEDS ORDERED: HYDR-4309 PO (19:02)
[2017-09-16] MEDS ORDERED: AMOX-559 PO (19:02)
[2017-09-16] MEDS ORDERED: DOXY-181 PO (19:02)
[2017-09-16 19:09] VITALS: BP 118/72
== END 2017-09-16 19:24 | disposition home or self-care (01) ==
LOC: ER 17:13
DX: N45.1 Epididymitis (principal); N43.3 Hydrocele, unspecified
CPT/HCPCS: 76870; 81001; 85025; 87088; 96374; 96375; 99284; J1885; J2270; 82040; 82247; 82310; 82374; 82435; 82565; 82947; 84075; 84132; 84155; 84295; 84450; 84460; 84520

== ENCOUNTER 2017-10-17 13:50 | Emergency (ER) | payer SELFPAY ==
[~2017-10-17 13:50] MED LIST changes: +AMOX-559 PO; +DOXY-181 PO; +HYDR-4309 PO
--- NOTE | 2017-10-17 13:58 | ER Report ---
History and Physical Time Seen By MD: 13:57 Hx. of Stated Complaint: Left lower quadrant abdominal pain, left testicular pain HPI/ROS Patient's 22-year-old male was seen by [facility] a week ago cultures were done he was told he had chlamydia had treatment for that since treatment he has had worsening of symptoms or swelling in his left testicle has had pain is left lower quadrant nausea constipation Allergies: Coded Allergies: No Known Drug Allergies (Verified , 09/16/17) Home Meds Active Scripts Doxycycline Hyclate (DOXYCYCLINE HYCLATE) 100 Mg Capsule, 100 MG PO BID for infection, #20 CAPSULE Prov:TANISHA HESTER DO 09/16/17 Discontinued Scripts Hydrocodone Bit/Acetaminophen (NORCO 5-325 TABLET) 1 Each Tablet, 1 EACH PO Q4H Y for PAIN, #15 TAB Prov:TANISHA HESTER 09/16/17 Amoxicillin/Pot Clav 875-125 Mg Tab (AUGMENTIN 875-125 TABLET) 1 Each Tablet, 1 TAB PO Q12H for infection, #14 TAB TAKE ONE TABLET BY MOUTH EVERY 12 HOURS Prov:TANISHA HESTER 09/16/17 Oxycodone Hcl/Acetaminophen (PERCOCET 5-325 MG TABLET) 1 Each Tablet, 1 EACH PO Q4H Y for PAIN, #10 TAB 0 Refills Prov:ERI ZAMBRANO MD 09/14/17 Levofloxacin 500 Mg Tab (LEVAQUIN 500 MG TAB) 500 Mg Tablet, 500 MG PO QDAY, # 10 TAB 0 Refills Prov:ERI ZAMBRANO MD 09/14/17 Past Medical/Surgical History Treatment for epididymitis 09/16/2017 treatment for chlamydia one week ago Hx Smoking: Yes Smoking Status: Current: Every Day Smoker Hx Substance Use Disorder: Yes ([facility]) Hx Alcohol Use: Yes (binges) Family History of: HTN Constitutional Vital Sign - Last 24 Hours 10/17/17 10/17/17 10/17/17 10/17/17 13:58 13:59 14:20 14:50 Temp 98.7 Pulse 104 100 Resp 20 B/P (MAP) 131/83 131/83 (99) Pulse Ox 98 96 100 O2 Delivery Room Air 10/17/17 10/17/17 10/17/17 10/17/17 15:17 15:20 15:30 15:35 Pulse 82 81 B/P (MAP) 127/69 (88) 119/72 (88) Pulse Ox 93 95 10/17/17 10/17/17 10/17/17 10/17/17 15:50 16:20 16:25 16:27 Pulse 76 77 79 B/P (MAP) 118/67 (84) Pulse Ox 93 95 94 10/17/17 10/17/17 10/17/17 10/17/17 16:30 16:40 16:55 17:00 Pulse 78 82 B/P (MAP) 115/69 (84) 111/68 (82) Pulse Ox 93 94 10/17/17 10/17/17 10/17/17 10/17/17 17:10 17:25 17:30 17:40 Pulse 72 74 72 B/P (MAP) 112/74 (87) Pulse Ox 95 94 10/17/17 17:55 Pulse 84 Pulse Ox 96 Intake and Output 10/17/17 10/17/17 10/18/17 15:00 23:00 07:00 Intake Total 1000 ml Balance 1000 ml Physical Exam General Appearance: [The patient appears uncomfortable The patient is alert, has no immediate need for airway protection and no current signs of toxicity.] [ ] Eyes: Pupils equal and round no injection. Respiratory: Chest is non tender, lungs are clear to auscultation. Cardiac: regular rate and rhythm [ ] Gastrointestinal: Abdominal pain left lower quadrant bowel sounds are hypoactive Musculoskeletal: Neck: Neck is supple and non tender. Extremities have full range of motion and are non tender. Skin: No rashes or lesions. swelling pain left testicle pain spermatic cord with palpation DIFFERENTIAL DIAGNOSIS: After history and physical exam differential diagnosis was considered for epididymitis versus torsion versus sexually transmitted disease infection Medical Decision Making Data Points Result Diagram: 10/17/17 1425 10/17/17 1425 Laboratory Hematology Test 10/17/17 13:54 10/17/17 14:25 Urine Color Yellow Urine Clarity Cloudy Urine pH 7.0 pH (4.8-9.5) Urine Specific [place] 1.017 Urine Protein Negative mg/dL (NEGATIVE) Urine Glucose (UA) Negative mg/dL (NEGATIVE) Urine Ketones Negative mg/dL (NEGATIVE) Urine Blood Negative (NEGATIVE) Urine Nitrite Negative (NEGATIVE) Urine Bilirubin Negative (NEGATIVE) Urine Urobilinogen Negative mg/dL (0.2-1.9) Urine Leukocyte Esterase Negative (NEGATIVE) Urine RBC None /HPF (0-2/HPF) Urine WBC None /HPF (0-5/HPF) Urine Squamous Epithelial Cells None /LPF (</=FEW) Urine Bacteria Negative /HPF (NONE-FEW) Urine Mucus None /HPF (NONE-FEW) Red Blood Count 4.58 M/uL (4.00-5.60) Mean Corpuscular Volume 97.0 fL (80.0-96.0) Mean Corpuscular Hemoglobin 33.9 pg (26.0-33.0) Mean Corpuscular Hemoglobin Concent 35.0 g/dL (32.0-36.0) Red Cell Distribution Width 13.5 % (11.5-14.5) Mean Platelet Volume 7.7 fL (7.2-11.1) Neutrophils (%) (Auto) 45.0 % (39.4-72.5) Lymphocytes (%) (Auto) 39.2 % (17.6-49.6) Monocytes (%) (Auto) 9.4 % (4.1-12.4) Eosinophils (%) (Auto) 5.5 % (0.4-6.7) Basophils (%) (Auto) 0.9 % (0.3-1.4) Nucleated RBC Relative Count (auto) 0.0 /100WBC Neutrophils # (Auto) 2.9 K/uL (2.0-7.4) Lymphocytes # (Auto) 2.5 K/uL (1.3-3.6) Monocytes # (Auto) 0.6 K/uL (0.3-1.0) Eosinophils # (Auto) 0.3 K/uL (0.0-0.5) Basophils # (Auto) 0.1 K/uL (0.0-0.1) Nucleated RBC Absolute Count (auto) 0.00 K/uL Erythrocyte Sedimentation Rate 1 mm/HOUR (0-15) Sodium Level 140 mmol/L (137-145) Potassium Level 4.3 mmol/L (3.5-5.0) Chloride Level 101 mmol/L (98-107) Carbon Dioxide Level 24 mmol/L (22-30) Blood Urea Nitrogen 12 mg/dl (9-21) Creatinine 0.80 mg/dl (0.66-1.25) Glomerular Filtration Rate Calc > 60.0 Random Glucose 91 mg/dl (75-110) Lactate 1.3 mmol/L (0.7-2.1) Calcium Level 9.4 mg/dl (8.4-10.2) Total Bilirubin 0.5 mg/dl (0.2-1.3) Aspartate Amino Transf (AST/SGOT) 26 U/L (0-35) Alanine Aminotransferase (ALT/SGPT) 54 U/L (0-56) Alkaline Phosphatase 86 U/L (0-126) C-Reactive Protein < 0.5 mg/dl (<1.0) Total Protein 7.0 gm/dl (6.3-8.2) Albumin 4.3 g/dl (3.5-5.0) Amylase Level 42 U/L (0-110) Lipase 56 U/L (23-300) Chemistry Test 10/17/17 13:54 10/17/17 14:25 Urine Color Yellow Urine Clarity Cloudy Urine pH 7.0 pH (4.8-9.5) Urine Specific [place] 1.017 Urine Protein Negative mg/dL (NEGATIVE) Urine Glucose (UA) Negative mg/dL (NEGATIVE) Urine Ketones Negative mg/dL (NEGATIVE) Urine Blood Negative (NEGATIVE) Urine Nitrite Negative (NEGATIVE) Urine Bilirubin Negative (NEGATIVE) Urine Urobilinogen Negative mg/dL (0.2-1.9) Urine Leukocyte Esterase Negative (NEGATIVE) Urine RBC None /HPF (0-2/HPF) Urine WBC None /HPF (0-5/HPF) Urine Squamous Epithelial Cells None /LPF (</=FEW) Urine Bacteria Negative /HPF (NONE-FEW) Urine Mucus None /HPF (NONE-FEW) White Blood Count 6.4 k/uL (4.5-11.0) Red Blood Count 4.58 M/uL (4.00-5.60) Hemoglobin 15.5 g/dL (14.0-18.0) Hematocrit 44.4 % (42.0-52.0) Mean Corpuscular Volume 97.0 fL (80.0-96.0) Mean Corpuscular Hemoglobin 33.9 pg (26.0-33.0) Mean Corpuscular Hemoglobin Concent 35.0 g/dL (32.0-36.0) Red Cell Distribution Width 13.5 % (11.5-14.5) Platelet Count 222 K/uL (150-450) Mean Platelet Volume 7.7 fL (7.2-11.1) Neutrophils (%) (Auto) 45.0 % (39.4-72.5) Lymphocytes (%) (Auto) 39.2 % (17.6-49.6) Monocytes (%) (Auto) 9.4 % (4.1-12.4) Eosinophils (%) (Auto) 5.5 % (0.4-6.7) Basophils (%) (Auto) 0.9 % (0.3-1.4) Nucleated RBC Relative Count (auto) 0.0 /100WBC Neutrophils # (Auto) 2.9 K/uL (2.0-7.4) Lymphocytes # (Auto) 2.5 K/uL (1.3-3.6) Monocytes # (Auto) 0.6 K/uL (0.3-1.0) Eosinophils # (Auto) 0.3 K/uL (0.0-0.5) Basophils # (Auto) 0.1 K/uL (0.0-0.1) Nucleated RBC Absolute Count (auto) 0.00 K/uL Erythrocyte Sedimentation Rate 1 mm/HOUR (0-15) Glomerular Filtration Rate Calc > 60.0 Lactate 1.3 mmol/L (0.7-2.1) Calcium Level 9.4 mg/dl (8.4-10.2) Total Bilirubin 0.5 mg/dl (0.2-1.3) Aspartate Amino Transf (AST/SGOT) 26 U/L (0-35) Alanine Aminotransferase (ALT/SGPT) 54 U/L (0-56) Alkaline Phosphatase 86 U/L (0-126) C-Reactive Protein < 0.5 mg/dl (<1.0) Total Protein 7.0 gm/dl (6.3-8.2) Albumin 4.3 g/dl (3.5-5.0) Amylase Level 42 U/L (0-110) Lipase 56 U/L (23-300) Urinalysis Test 10/17/17 13:54 Urine Color Yellow Urine Clarity Cloudy Urine pH 7.0 pH (4.8-9.5) Urine Specific [place] 1.017 Urine Protein Negative mg/dL (NEGATIVE) Urine Glucose (UA) Negative mg/dL (NEGATIVE) Urine Ketones Negative mg/dL (NEGATIVE) Urine Blood Negative (NEGATIVE) Urine Nitrite Negative (NEGATIVE) Urine Bilirubin Negative (NEGATIVE) Urine Urobilinogen Negative mg/dL (0.2-1.9) Urine Leukocyte Esterase Negative (NEGATIVE) Urine RBC None /HPF (0-2/HPF) Urine WBC None /HPF (0-5/HPF) Urine Squamous Epithelial Cells None /LPF (</=FEW) Urine Bacteria Negative /HPF (NONE-FEW) Urine Mucus None /HPF (NONE-FEW) EKG/Imaging Imaging FACILITY: [facility] PATIENT NAME: Khari Powers : 1995 MR: [id number] V: [id number] EXAM DATE: [id number] ORDERING PHYSICIAN: KATTY NORWOOD TECHNOLOGIST: Location: [facility] Patient: Khari Powers : 1995 Visit/Account:[id number] Date of Sevice: 10/17/2017 ADDENDUM #1 Addendum: The initial images sent were previous study of September 14, 2017 not the images from 10/17/2017. There is, however, no change in the report. Appendix was best visualized on coronal image 50 through 55 and axial images 83 through 75 series 2. There was normal appearance.. Report Dictated By: Deni Reynolds MD at 10/17/2017 5:44 PM Report E-Signed By: Deni Reynolds MD at 10/17/2017 5:50 PM ORIGINAL REPORT ABDOMEN/PELVIS WITH CONTRAST Additional pertinent History: none significant TECHNIQUE: Spiral scan was through the abdomen and pelvis during injection of nonionic iodinated intravenous contrast. Contrast: 75 mL of IV Isovue-370. COMPARISON STUDIES: none. One of the following dose optimization techniques was utilized in the performance of this exam: Automated exposure control; adjustment of the mA and/ or kV according to the patient's size; or use of an iterative reconstruction technique. Specific details can be referenced in the facility's radiology CT exam operational policy. FINDINGS: Liver / biliary: No liver lesions. Pancreas: negative Spleen: negative Adrenal glands: No adrenal mass lesions. Kidneys / retroperitoneum: No renal stone or renal obstructive uropathy change. Normal nephrograms bilaterally. Pelvic structures: Prostate and seminal vesicles grossly normal. Bowel / peritoneum / mesenteries: Moderate fecal impaction. No abdominal mass lesion or inflammation. Appendix visualized with no appendicitis (images 106 through 110 series 2) Vessels: negative Musculoskeletal / Body wall: No inguinal hernia. Lymph node assessment: negative Lower chest: negative IMPRESSION: 1. Negative CT scan of the abdomen/pelvis for acute pathology. Specifically no appendicitis. Report Dictated By: Deni Reynolds MD at 10/17/2017 3:33 PM Report E-Signed By: Deni Reynolds MD at 10/17/2017 3:39 PMFACILITY: [facility] PATIENT NAME: Khari Powers : 1995 MR: [id number] V: [id number] EXAM DATE: [id number] ORDERING PHYSICIAN: KATTY NORWOOD TECHNOLOGIST: Location: [facility] Patient: Khari Powers : 1995 Visit/Account:[id number] Date of Sevice: 10/17/2017 TESTICULAR HISTORY: Left testicle pain, history of epididymitis/chlamydia, on antibiotics COMPARISON: September 16, 2017 FINDINGS: Testes: Right testicle measures 4.4 x 2.5 x 2.6 cm. The left testicle measures 4.4 x 2.4 x 3.4 cm. Symmetric and unremarkable blood flow documented by color and Duplex Doppler ultrasound. Epididymides: The head of the epididymis on the right measures 1 x 1.1 x 1.1 cm. The head of the epididymis on the left measures 1.1 x 1.2 x 1.7 cm and appears heterogeneous.. The left epididymal body and tail are thickened and hyperemic with the tail containing calcifications. Hydrocele: Small bilaterally. The left hydrocele is smaller than on the prior examination Varicocele: On the left IMPRESSION: The head body and tail the epididymis remain thickened and hyperemic consistent with history of epididymitis. Small bilateral hydroceles. The hydrocele on the left is slightly smaller than on the prior study Left varicocele Report Dictated By: Debbie Swan MD at 10/17/2017 3:42 PM Report E-Signed By: Debbie Swan MD at 10/17/2017 3:47 PM WSN:[email or web address] ED Course/Re-evaluation Clinical Indication for ER IV: Hydration ED Course Tested from the [facility] white blood cell count 6.6 hepatitis A negative hepatitis B negative hep C is negative gonorrhea is negative Chlamydia is positive RPR is nonreactive HIV is nonreactive urine culture is negative Re-evaluation Discussed patient with Dr. Weldon he will see him in clinic tomorrow them discharge instructions To follow-up with Dr. Weldon tomorrow call for an appointment time Decision to Disposition Date: Oct 17, 2017 Decision to Disposition Time: 14:15 Depart Departure Latest Vital Signs Vital Signs Date Time Temp Pulse Resp B/P (MAP) Pulse Ox O2 Delivery O2 Flow Rate FiO2 10/17/17 17:55 84 96 10/17/17 17:30 112/74 (87) 10/17/17 13:58 98.7 20 Room Air Impression: Primary Impression: Epididymitis Additional Impression: Chlamydia Condition: Improved Disposition: HOME OR SELF-CARE Referrals: BLU WELDON MD 1 Day Patient Instructions: Chlamydia (DC), Epididymitis (ED) Additional Instructions: Call Dr. Weldon's office he'll be seen in the clinic tomorrow Problem Qualifiers KATTY NORWOOD APRN-C Oct 17, 2017 13:58
[2017-10-17] MEDS ORDERED: NS(*) 0.9% 1000 ML BAG 1,000 ML IV ONE (14:11)
[2017-10-17] MEDS ORDERED: ONDANSETRON 4 MG/2 ML VIAL IVP ONE (14:15)
[2017-10-17] MEDS ORDERED: fentaNYL CITR 100 MCG/2 ML AMP IVP ONE (14:15)
[2017-10-17 14:41] LABS: PLATELET COUNT, AUTOMATED 222 K/uL (150-450)
[2017-10-17] MEDS ORDERED: IOPAMIDOL 76% 75 ML INFUS BTL 75 ML ONE (15:01)
--- NOTE | 2017-10-17 15:44 | RADIOLOGY IMAGING REPORT ---
FACILITY: [facility] PATIENT NAME: Khari Powers : 1995 MR: [id number] V: [id number] EXAM DATE: ORDERING PHYSICIAN: KATTY NORWOOD TECHNOLOGIST: Location: [facility] Patient: Khari Powers : 1995 Visit/Account:[id number] Date of Sevice: 10/17/2017 ADDENDUM #1 Addendum: The initial images sent were previous study of September 14, 2017 not the images from 10/17/2017 . There is, however, no change in the report. Appendix was best visualized on coronal image 50 throug h 55 and axial images 83 through 75 series 2. There was normal appearance.. Report Dictated By: Deni Reynolds MD at 10/17/2017 5:44 PM Report E-Signed By: Deni Reynolds MD at 10/17/2017 5:50 PM ORIGINAL REPORT ABDOMEN/PELVIS WITH CONTRAST Additional pertinent History: none significant TECHNIQUE: Spiral scan was through the abdomen and pelvis during injection of nonionic iodinated in travenous contrast. Contrast: 75 mL of IV Isovue-370. COMPARISON STUDIES: none. One of the following dose optimization techniques was utilized in the performance of this exam: Autom ated exposure control; adjustment of the mA and/or kV according to the patient's size; or use of an i terative reconstruction technique. Specific details can be referenced in the facility's radiology C T exam operational policy. FINDINGS: Liver / biliary: No liver lesions. Pancreas: negative Spleen: negative Adrenal glands: No adrenal mass lesions. Kidneys / retroperitoneum: No renal stone or renal obstructive uropathy change. Normal nephrograms bi laterally. Pelvic structures: Prostate and seminal vesicles grossly normal. Bowel / peritoneum / mesenteries: Moderate fecal impaction. No abdominal mass lesion or inflammation. Appendix visualized with no appendicitis (images 106 through 110 series 2) Vessels: negative Musculoskeletal / Body wall: No inguinal hernia. Lymph node assessment: negative Lower chest: negative IMPRESSION: 1. Negative CT scan of the abdomen/pelvis for acute pathology. Specifically no appendicitis. Report Dictated By: Deni Reynolds MD at 10/17/2017 3:33 PM Report E-Signed By: Deni Reynolds MD at 10/17/2017 3:39 PM WSN:[id number]
--- NOTE | 2017-10-17 15:50 | RADIOLOGY IMAGING REPORT ---
FACILITY: [facility] PATIENT NAME: Khari Powers : 1995 MR: [id number] V: [id number] EXAM DATE: ORDERING PHYSICIAN: KATTY NORWOOD TECHNOLOGIST: Location: [facility] Patient: Khari Powers : 1995 Visit/Account:[id number] Date of Sevice: 10/17/2017 TESTICULAR HISTORY: Left testicle pain, history of epididymitis/chlamydia, on antibiotics COMPARISON: September 16, 2017 FINDINGS: Testes: Right testicle measures 4.4 x 2.5 x 2.6 cm. The left testicle measures 4.4 x 2.4 x 3.4 cm. Symmetric and unremarkable blood flow documented by color and Duplex Doppler ultrasound. Epididymides: The head of the epididymis on the right measures 1 x 1.1 x 1.1 cm. The head of the epi didymis on the left measures 1.1 x 1.2 x 1.7 cm and appears heterogeneous.. The left epididymal body and tail are thickened and hyperemic with the tail containing calcifications. Hydrocele: Small bilaterally. The left hydrocele is smaller than on the prior examination Varicocele: On the left IMPRESSION: The head body and tail the epididymis remain thickened and hyperemic consistent with history of epidi dymitis. Small bilateral hydroceles. The hydrocele on the left is slightly smaller than on the prior study Left varicocele Report Dictated By: Debbie Swan MD at 10/17/2017 3:42 PM Report E-Signed By: Debbie Swan MD at 10/17/2017 3:47 PM WSN:[email or web address]
[2017-10-17 17:30] VITALS: BP 112/74
[2017-10-17] MEDS ORDERED: APAP/HYDROCODONE 325/5 TAB PO ONE (17:50)
== END 2017-10-17 18:03 | disposition home or self-care (01) ==
LOC: ER 14:00
DX: N45.1 Epididymitis (principal); A74.9 Chlamydial infection, unspecified
CPT/HCPCS: 74177; 76870; 81001; 82150; 83605; 83690; 85025; 85651; 86140; 87491; 87591; 96361; 96374; 96375; 99284; J2405; J3010; J7030; Q9967; 82040; 82247; 82310; 82374; 82435; 82565; 82947; 84075; 84132; 84155; 84295; 84450; 84460; 84520

== ENCOUNTER 2017-11-01 16:44 | Emergency (ER) | payer SELFPAY ==
--- NOTE | 2017-11-01 16:54 | ER Report ---
History and Physical Time Seen By MD: 16:53 HPI/ROS CHIEF COMPLAINT: Testicular pain HISTORY OF PRESENT ILLNESS: This is a 22-year-old male who presents to the emergency department for recurrent testicular pain. Patient states that over the last 2-3 months he's had left testicular pain, was treated for GC chlamydia , did follow-up with Dr. Zuniga and is currently being treated with doxycycline as a trial for the left testicular pain. Patient states that he and Dr. Zuniga also talked about if the pain returns that the likelihood that he would take him to surgery was very high. The patient states over the last 2-3 days he's had increased left testicular pain, he states that the left testicle is larger and more painful, states has increased pain when he is lifting objects. Patient also states that he's had remittent constipation, he did however have a very dark appearing bowel movement today. He has had intermittent fevers, aches, chills as well as intermittent nausea, no vomiting. No headaches, no chest pain or shortness of breath. REVIEW OF SYSTEMS: Respiratory: No cough, no dyspnea. Cardiovascular: No chest pain, no palpitations. Gastrointestinal: As above. Genitourinary: As above. Musculoskeletal: No back pain. Allergies: Coded Allergies: No Known Drug Allergies (Verified , 09/16/17) Home Meds Active Scripts Cyclobenzaprine Hcl (CYCLOBENZAPRINE HCL) 10 Mg Tablet, 5-10 MG PO TID Y for MUSCLE SPASMS, #9 TAB 0 Refills Prov:SUZIE BONILLA [employer]ACE TRAINER AND ASSESSOR- 11/01/17 Doxycycline Hyclate (DOXYCYCLINE HYCLATE) 100 Mg Capsule, 100 MG PO BID for infection, #20 CAPSULE Prov:TANISHA HESTER DO 09/16/17 Past Medical/Surgical History Patient has a past medical and surgical history of migraines, asthma, chlamydia , uses marijuana. Reviewed Nurses Notes: Yes Hx Smoking: Yes Smoking Status: Current: Every Day Smoker [facility] Hx Alcohol Use: Yes (binges) Constitutional Vital Sign - Last 24 Hours 11/01/17 11/01/17 11/01/17 11/01/17 16:49 16:55 16:59 17:00 Temp 98.2 Pulse 108 Resp 18 B/P (MAP) 124/82 (96) 127/100 127/100 (109) Pulse Ox 94 96 O2 Delivery Room Air 11/01/17 11/01/17 11/01/17 11/01/17 17:14 17:19 17:30 17:34 Pulse 95 102 96 B/P (MAP) 124/68 (86) Pulse Ox 96 94 93 11/01/17 11/01/17 11/01/17 11/01/17 17:49 18:00 18:19 18:34 Pulse 96 90 93 B/P (MAP) 116/79 (91) Pulse Ox 95 93 97 11/01/17 11/01/17 11/01/17 11/01/17 18:39 18:54 19:00 19:09 Pulse 87 83 127 B/P (MAP) 120/88 (99) Pulse Ox 95 96 94 11/01/17 11/01/17 11/01/17 11/01/17 19:14 19:29 19:30 19:44 Pulse 101 85 89 B/P (MAP) 115/78 (90) Pulse Ox 95 93 93 Physical Exam General Appearance: The patient is alert, has no immediate need for airway protection and no current signs of toxicity. Eyes: Pupils equal and round no injection. Respiratory: Chest is non tender, lungs are clear to auscultation. Cardiac: regular rate and rhythm. Gastrointestinal: Abdomen is soft and non tender, no masses, bowel sounds normal. Genitourinary: Minimally reactive cremasterics reflex bilaterally however, was intact. No masses felt in the inguinal canals. The left testicle is painful to palpation. The left testicle does feel as though it is riding horizontal not vertically. No penile discharge or lesions noted. Musculoskeletal: Neck: Neck is supple and non tender. Extremities have full range of motion and are non tender. Skin: No rashes or lesions. DIFFERENTIAL DIAGNOSIS: After history and physical exam differential diagnosis was considered for GC chlamydia, epididymitis, testicular torsion and hernia. Medical Decision Making Data Points Result Diagram: 11/01/17 1713 11/01/17 171 Laboratory Hematology Test 11/01/17 16:52 11/01/17 17:13 Urine Color Yellow Urine Clarity Clear Urine pH 7.0 pH (4.8-9.5) Urine Specific [place] 1.012 Urine Protein Negative mg/dL (NEGATIVE) Urine Glucose (UA) Negative mg/dL (NEGATIVE) Urine Ketones Negative mg/dL (NEGATIVE) Urine Blood Negative (NEGATIVE) Urine Nitrite Negative (NEGATIVE) Urine Bilirubin Negative (NEGATIVE) Urine Urobilinogen Negative mg/dL (0.2-1.9) Urine Leukocyte Esterase Negative (NEGATIVE) Urine RBC None /HPF (0-2/HPF) Urine WBC 1 /HPF (0-5/HPF) Urine Squamous Epithelial Cells None /LPF (</=FEW) Urine Bacteria Negative /HPF (NONE-FEW) Urine Mucus None /HPF (NONE-FEW) Red Blood Count 4.83 M/uL (4.00-5.60) Mean Corpuscular Volume 96.8 fL (80.0-96.0) Mean Corpuscular Hemoglobin 33.9 pg (26.0-33.0) Mean Corpuscular Hemoglobin Concent 35.0 g/dL (32.0-36.0) Red Cell Distribution Width 13.6 % (11.5-14.5) Mean Platelet Volume 7.7 fL (7.2-11.1) Neutrophils (%) (Auto) 61.0 % (39.4-72.5) Lymphocytes (%) (Auto) 31.7 % (17.6-49.6) Monocytes (%) (Auto) 4.5 % (4.1-12.4) Eosinophils (%) (Auto) 2.3 % (0.4-6.7) Basophils (%) (Auto) 0.5 % (0.3-1.4) Nucleated RBC Relative Count (auto) 0.0 /100WBC Neutrophils # (Auto) 5.5 K/uL (2.0-7.4) Lymphocytes # (Auto) 2.9 K/uL (1.3-3.6) Monocytes # (Auto) 0.4 K/uL (0.3-1.0) Eosinophils # (Auto) 0.2 K/uL (0.0-0.5) Basophils # (Auto) 0.0 K/uL (0.0-0.1) Nucleated RBC Absolute Count (auto) 0.00 K/uL Sodium Level 142 mmol/L (137-145) Potassium Level 3.9 mmol/L (3.5-5.0) Chloride Level 104 mmol/L (98-107) Carbon Dioxide Level 24 mmol/L (22-30) Blood Urea Nitrogen 8 mg/dl (9-21) Creatinine 0.90 mg/dl (0.66-1.25) Glomerular Filtration Rate Calc > 60.0 Random Glucose 120 mg/dl (75-110) Calcium Level 9.7 mg/dl (8.4-10.2) Total Bilirubin 0.7 mg/dl (0.2-1.3) Aspartate Amino Transf (AST/SGOT) 26 U/L (0-35) Alanine Aminotransferase (ALT/SGPT) 26 U/L (0-56) Alkaline Phosphatase 78 U/L (0-126) Total Protein 7.4 gm/dl (6.3-8.2) Albumin 4.6 g/dl (3.5-5.0) Chemistry Test 11/01/17 16:52 11/01/17 17:13 Urine Color Yellow Urine Clarity Clear Urine pH 7.0 pH (4.8-9.5) Urine Specific [place] 1.012 Urine Protein Negative mg/dL (NEGATIVE) Urine Glucose (UA) Negative mg/dL (NEGATIVE) Urine Ketones Negative mg/dL (NEGATIVE) Urine Blood Negative (NEGATIVE) Urine Nitrite Negative (NEGATIVE) Urine Bilirubin Negative (NEGATIVE) Urine Urobilinogen Negative mg/dL (0.2-1.9) Urine Leukocyte Esterase Negative (NEGATIVE) Urine RBC None /HPF (0-2/HPF) Urine WBC 1 /HPF (0-5/HPF) Urine Squamous Epithelial Cells None /LPF (</=FEW) Urine Bacteria Negative /HPF (NONE-FEW) Urine Mucus None /HPF (NONE-FEW) White Blood Count 9.1 k/uL (4.5-11.0) Red Blood Count 4.83 M/uL (4.00-5.60) Hemoglobin 16.4 g/dL (14.0-18.0) Hematocrit 46.7 % (42.0-52.0) Mean Corpuscular Volume 96.8 fL (80.0-96.0) Mean Corpuscular Hemoglobin 33.9 pg (26.0-33.0) Mean Corpuscular Hemoglobin Concent 35.0 g/dL (32.0-36.0) Red Cell Distribution Width 13.6 % (11.5-14.5) Platelet Count 181 K/uL (150-450) Mean Platelet Volume 7.7 fL (7.2-11.1) Neutrophils (%) (Auto) 61.0 % (39.4-72.5) Lymphocytes (%) (Auto) 31.7 % (17.6-49.6) Monocytes (%) (Auto) 4.5 % (4.1-12.4) Eosinophils (%) (Auto) 2.3 % (0.4-6.7) Basophils (%) (Auto) 0.5 % (0.3-1.4) Nucleated RBC Relative Count (auto) 0.0 /100WBC Neutrophils # (Auto) 5.5 K/uL (2.0-7.4) Lymphocytes # (Auto) 2.9 K/uL (1.3-3.6) Monocytes # (Auto) 0.4 K/uL (0.3-1.0) Eosinophils # (Auto) 0.2 K/uL (0.0-0.5) Basophils # (Auto) 0.0 K/uL (0.0-0.1) Nucleated RBC Absolute Count (auto) 0.00 K/uL Glomerular Filtration Rate Calc > 60.0 Calcium Level 9.7 mg/dl (8.4-10.2) Total Bilirubin 0.7 mg/dl (0.2-1.3) Aspartate Amino Transf (AST/SGOT) 26 U/L (0-35) Alanine Aminotransferase (ALT/SGPT) 26 U/L (0-56) Alkaline Phosphatase 78 U/L (0-126) Total Protein 7.4 gm/dl (6.3-8.2) Albumin 4.6 g/dl (3.5-5.0) Urinalysis Test 11/01/17 16:52 Urine Color Yellow Urine Clarity Clear Urine pH 7.0 pH (4.8-9.5) Urine Specific [place] 1.012 Urine Protein Negative mg/dL (NEGATIVE) Urine Glucose (UA) Negative mg/dL (NEGATIVE) Urine Ketones Negative mg/dL (NEGATIVE) Urine Blood Negative (NEGATIVE) Urine Nitrite Negative (NEGATIVE) Urine Bilirubin Negative (NEGATIVE) Urine Urobilinogen Negative mg/dL (0.2-1.9) Urine Leukocyte Esterase Negative (NEGATIVE) Urine RBC None /HPF (0-2/HPF) Urine WBC 1 /HPF (0-5/HPF) Urine Squamous Epithelial Cells None /LPF (</=FEW) Urine Bacteria Negative /HPF (NONE-FEW) Urine Mucus None /HPF (NONE-FEW) EKG/Imaging Imaging Location: [facility] [place] Patient: Khari Powers : 1995 Visit/Account:[id number] Date of Sevice: 11/01/2017 EXAMINATION: Scrotal ultrasound with duplex Doppler evaluation HISTORY: Testicular pain. COMPARISON: 10/17/2017. FINDINGS: Testes: Normal in size and echogenicity without mass or microlithiasis. The right testis measures 4.8 x 2.4 x 3.4 cm and the left testis measures 4.4 x 2.7 x 3.4 cm. Low resistance arterial blood flow within each testicle by duplex Doppler ultrasound. Venous blood flow is also documented. Vascularity appears symmetric on color Doppler. Epididymides: Blood flow is appropriate in each epididymis by color Doppler ultrasound. Blood flow may be mildly increased in the epididymides. There are enlarged vessels on the left along the epididymis. Hydrocele: Bilateral hydrocele. Varicocele: Findings suggestive of left varicocele. IMPRESSION: Left varicocele and bilateral hydrocele. Vascularity appears increased within the epididymides, slightly more prominent on the left, with mild enlargement of the left epididymis. These findings suggest possible epididymitis. No evidence of testicular torsion. Report Dictated By: Tamir Coto MD at 11/01/2017 7:03 PM Report E-Signed By: Tamir Coto MD at 11/01/2017 7:15 PM WSN:[id number] ED Course/Re-evaluation Clinical Indication for ER IV: IV Access ED Course The patient was admitted to a room. A history of physical were obtained. Differential diagnoses were considered. An IV was started. A CBC, CMP were obtained. Lab studies unremarkable. Negative UA. GC chlamydia is a send out. The patient remains on a long course of doxycycline as prescribed by Dr. Zuniga. The ultrasound did show recurrent epididymitis, hydrocele and varicocele but no testicular torsion, good blood flow to both testes. I did review these results with the patient he is very relieved there is no torsion however he does understand that there is a high likelihood that he will need surgery for the hydrocele and possibly varicocele. The patient was given 4 mg IV Zofran, 4 mg IV morphine. The patient was also given 1 g of azithromycin, 10 mg of IV Decadron, 30 mg IV ketorolac. Patient is also given a take home pack of cyclobenzaprine as well as a prescription for cyclobenzaprine. Patient was instructed to follow-up with Dr. Zuniga in the next 1-2 days for reevaluation of the hydrocele and varicocele and epididymitis. The patient had no other questions or concerns at this time and was discharged home. The patient was in agreement with this plan of care. Decision to Disposition Date: November 01, 2017 Decision to Disposition Time: 19:42 Depart Departure Latest Vital Signs Vital Signs Date Time Temp Pulse Resp B/P (MAP) Pulse Ox O2 Delivery O2 Flow Rate FiO2 11/01/17 19:44 89 93 11/01/17 19:30 115/78 (90) 11/01/17 16:55 98.2 18 Room Air Impression: Primary Impression: Epididymitis Additional Impressions: Hydrocele Varicocele Condition: Improved Disposition: HOME OR SELF-CARE New Scripts Cyclobenzaprine Hcl (CYCLOBENZAPRINE HCL) 10 Mg Tablet 5-10 MG PO TID Y for MUSCLE SPASMS, #9 TAB 0 Refills Prov: SUZIE BONILLA 11/01/17 Patient Instructions: Epididymitis (ED), Hydrocele (ED), Varicocele (ED) Additional Instructions: Drink plenty of fluids. Get plenty of rest. Continue taking the medications as prescribed. Follow-up with Dr. Zuniga in 1-2 days for reevaluation of the testes and consideration of a surgical procedure for the hydrocele and varicocele. Follow-up with your primary care provider as needed. Return to the emergency department for any other concerns or worsening symptoms. Problem Qualifiers Additional Impressions: Hydrocele Hydrocele type: unspecified Qualified Codes: N43.3 - Hydrocele, unspecified SUZIE BONILLA WORK[employer] TRAINER AND ASSESSOR-BC November 01, 2017 16:53
[2017-11-01] MEDS ORDERED: ONDANSETRON 4 MG/2 ML VIAL IVP ONE (17:05)
[2017-11-01] MEDS ORDERED: MORPHINE 4 MG/ML SDV IVP ONE (17:05)
[2017-11-01 17:34] LABS: PLATELET COUNT, AUTOMATED 181 K/uL (150-450)
[2017-11-01] MEDS ORDERED: KETOROLAC 30 MG/ML VIAL IVP ONE (18:50)
[2017-11-01] MEDS ORDERED: DEXAMETHASONE SOD PHOS 10MG/ML IVP ONE (18:50)
[2017-11-01] MEDS ORDERED: AZITHROMYCIN 250 MG TAB PO ONE (18:50)
--- NOTE | 2017-11-01 19:17 | RADIOLOGY IMAGING REPORT ---
FACILITY: [facility] - [place] PATIENT NAME: Khari Powers : 1995 MR: [id number] V: [id number] EXAM DATE: ORDERING PHYSICIAN: BELEN FRYE TECHNOLOGIST: Location: [facility] [place] Patient: Khari Powers : 1995 Visit/Account:[id number] Date of Sevice: 11/01/2017 EXAMINATION: Scrotal ultrasound with duplex Doppler evaluation HISTORY: Testicular pain. COMPARISON: 10/17/2017. FINDINGS: Testes: Normal in size and echogenicity without mass or microlithiasis. The right testis measures 4. 8 x 2.4 x 3.4 cm and the left testis measures 4.4 x 2.7 x 3.4 cm. Low resistance arterial blood flow within each testicle by duplex Doppler ultrasound. Venous bl ood flow is also documented. Vascularity appears symmetric on color Doppler. Epididymides: Blood flow is appropriate in each epididymis by color Doppler ultrasound. Blood flow m ay be mildly increased in the epididymides. There are enlarged vessels on the left along the epididym is. Hydrocele: Bilateral hydrocele. Varicocele: Findings suggestive of left varicocele. IMPRESSION: Left varicocele and bilateral hydrocele. Vascularity appears increased within the epididymides, slightly more prominent on the left, with mild enlargement of the left epididymis. These findings suggest possible epididymitis. No evidence of testicular torsion. Report Dictated By: Tamir Coto MD at 11/01/2017 7:03 PM Report E-Signed By: Tamir Coto MD at 11/01/2017 7:15 PM WSN:[id number]
[2017-11-01 19:30] VITALS: BP 115/78
[2017-11-01] MEDS ORDERED: CYCL10TA29 PO (19:44)
[2017-11-01] MEDS ORDERED: CYCLOBENZAPRINE HCL 10 MG TH PO ONE (19:45)
== END 2017-11-01 19:56 | disposition home or self-care (01) ==
LOC: ER 16:44
DX: N45.1 Epididymitis (principal); N43.3 Hydrocele, unspecified; I86.1 Scrotal varices
CPT/HCPCS: 76870; 81001; 85025; 87491; 87591; 96374; 96375; 99284; J1100; J1885; J2270; J2405; Q0144; 82040; 82247; 82310; 82374; 82435; 82565; 82947; 84075; 84132; 84155; 84295; 84450; 84460; 84520

== ENCOUNTER 2017-11-08 15:28 | Emergency (ER) | payer SELFPAY ==
[~2017-11-08 15:28] MED LIST changes: +CYCL10TA29 PO
--- NOTE | 2017-11-08 16:11 | ER Report ---
History and Physical Time Seen By MD: 16:11 Hx. of Stated Complaint: PATIENT HAS PAIN BELOW HIS BELLY BUTTON FOR 3 DAYS HPI/ROS CHIEF COMPLAINT: Abdominal pain HISTORY OF PRESENT ILLNESS: 22-year-old male patient presents to emergency room with complaint of abdominal pain. Patient states that he has been having pain in his abdomen for the past 3 days. States the pain started when he picked up a "small guitar". Patient states that since then he's been having pain seems to worsen throughout the day. States it seems to be better in the morning. He states that he generally eats throughout the day and does not note that the pain worsens secondary to eating. He denies any vomiting, nausea, diarrhea. Patient states he's been constipated but has been able to have bowel movements last 2 days. Patient states that he is currently being treated for epididymitis with antibiotics. Patient states he also has sided chest pain. He states that his "deep in his chest". He denies having any shortness of breath. He states he is not taking any medication for this. Patient states has been having a lot of sinus congestion recently. States that he feels that his nose is extremely stuffed up. REVIEW OF SYSTEMS: Respiratory: No cough, no dyspnea. Cardiovascular: As noted above Gastrointestinal: As noted above Musculoskeletal: No back pain. Allergies: Coded Allergies: No Known Drug Allergies (Verified , 11/08/17) Home Meds Active Scripts Ketorolac Tromethamine (KETOROLAC TROMETHAMINE) 10 Mg Tab, 10 MG PO Q6H, #20 TAB Prov:JOHNSON MORRISSEY MANAGER GYN 11/08/17 Cyclobenzaprine Hcl (CYCLOBENZAPRINE HCL) 10 Mg Tablet, 5-10 MG PO TID Y for MUSCLE SPASMS, #9 TAB 0 Refills Prov:SUZIE BONILLA MANAGER GYN-BC 11/01/17 Doxycycline Hyclate (DOXYCYCLINE HYCLATE) 100 Mg Capsule, 100 MG PO BID for infection, #20 CAPSULE Prov:TANISHA HESTER DO 09/16/17 Past Medical/Surgical History Patient has past medical history of migraines, asthma, chlamydia, epididymitis, marijuana abuse, alcohol abuse. Patient denies any surgical history. Reviewed Nurses Notes: Yes Hx Smoking: Yes Smoking Status: Current: Every Day Smoker Hx Substance Use Disorder: Yes (marajuana) Hx Alcohol Use: Yes (binges) Constitutional Vital Sign - Last 24 Hours 11/08/17 11/08/17 11/08/17 11/08/17 15:56 15:56 15:58 16:00 Temp 98.8 Pulse 123 128 Resp 18 B/P (MAP) 143/87 (105) 143/87 120/79 (93) Pulse Ox 95 96 11/08/17 11/08/17 11/08/17 11/08/17 16:15 16:20 16:30 16:45 B/P (MAP) 121/78 (92) 122/95 (104) 122/74 (90) Pulse Ox 96 11/08/17 11/08/17 11/08/17 11/08/17 16:50 17:00 17:15 17:20 Pulse 104 87 B/P (MAP) 114/82 (93) 116/75 (89) Pulse Ox 96 96 11/08/17 11/08/17 11/08/17 11/08/17 17:30 17:35 18:00 18:15 Pulse 93 B/P (MAP) 117/74 (88) 120/72 (88) 120/72 (88) Pulse Ox 96 11/08/17 11/08/17 11/08/17 11/08/17 18:30 18:35 18:40 18:45 Pulse 93 92 B/P (MAP) 104/50 (68) 115/61 (79) Pulse Ox 93 93 11/08/17 19:00 B/P (MAP) 128/68 (88) Intake and Output 11/08/17 11/08/17 11/09/17 14:59 22:59 06:59 Intake Total 1000 ml Balance 1000 ml Physical Exam General Appearance: The patient is alert, has no immediate need for airway protection and no current signs of toxicity. ENT: Tympanic membranes are pearly-pinto, auditory canals are patent, mixed mucous membranes are moist. Respiratory: Chest is non tender, lungs are clear to auscultation. Cardiac: regular rate and rhythm Gastrointestinal: Abdomen is soft and tender in the left upper and lower quadrants, no masses, bowel sounds normal. Musculoskeletal: Neck: Neck is supple and non tender. Extremities have full range of motion and are non tender. Skin: No rashes or lesions. DIFFERENTIAL DIAGNOSIS: After history and physical exam differential diagnosis was considered for abdominal pain including but not limited to appendicitis, cholecystitis, gastritis and urinary tract infection. Included in the differential is chest pain, OK, pneumonia, upper respiratory infection, sinusitis. Medical Decision Making Data Points Result Diagram: 11/08/17 1658 11/08/17 1658 Laboratory Hematology Test 11/08/17 15:55 11/08/17 16:58 Urine Color Yellow Urine Clarity Clear Urine pH 6.0 pH (4.8-9.5) Urine Specific Selmer 1.024 Urine Protein Negative mg/dL (NEGATIVE) Urine Glucose (UA) Negative mg/dL (NEGATIVE) Urine Ketones Negative mg/dL (NEGATIVE) Urine Blood Negative (NEGATIVE) Urine Nitrite Negative (NEGATIVE) Urine Bilirubin Negative (NEGATIVE) Urine Urobilinogen Negative mg/dL (0.2-1.9) Urine Leukocyte Esterase Negative (NEGATIVE) Urine RBC None /HPF (0-2/HPF) Urine WBC <1 /HPF (0-5/HPF) Urine Squamous Epithelial Cells None /LPF (</=FEW) Urine Bacteria Negative /HPF (NONE-FEW) Urine Mucus None /HPF (NONE-FEW) Red Blood Count 5.09 M/uL (4.00-5.60) Mean Corpuscular Volume 96.9 fL (80.0-96.0) Mean Corpuscular Hemoglobin 33.5 pg (26.0-33.0) Mean Corpuscular Hemoglobin Concent 34.5 g/dL (32.0-36.0) Red Cell Distribution Width 13.5 % (11.5-14.5) Mean Platelet Volume 7.5 fL (7.2-11.1) Neutrophils (%) (Auto) 51.8 % (39.4-72.5) Lymphocytes (%) (Auto) 34.7 % (17.6-49.6) Monocytes (%) (Auto) 8.9 % (4.1-12.4) Eosinophils (%) (Auto) 2.7 % (0.4-6.7) Basophils (%) (Auto) 1.9 % (0.3-1.4) Nucleated RBC Relative Count (auto) 0.0 /100WBC Neutrophils # (Auto) 3.5 K/uL (2.0-7.4) Lymphocytes # (Auto) 2.3 K/uL (1.3-3.6) Monocytes # (Auto) 0.6 K/uL (0.3-1.0) Eosinophils # (Auto) 0.2 K/uL (0.0-0.5) Basophils # (Auto) 0.1 K/uL (0.0-0.1) Nucleated RBC Absolute Count (auto) 0.00 K/uL Sodium Level 138 mmol/L (137-145) Potassium Level 4.2 mmol/L (3.5-5.0) Chloride Level 101 mmol/L (98-107) Carbon Dioxide Level 23 mmol/L (22-30) Blood Urea Nitrogen 16 mg/dl (9-21) Creatinine 0.80 mg/dl (0.66-1.25) Glomerular Filtration Rate Calc > 60.0 Random Glucose 87 mg/dl (75-110) Calcium Level 10.0 mg/dl (8.4-10.2) Total Bilirubin 0.4 mg/dl (0.2-1.3) Aspartate Amino Transf (AST/SGOT) 40 U/L (0-35) Alanine Aminotransferase (ALT/SGPT) 42 U/L (0-56) Alkaline Phosphatase 84 U/L (0-126) Troponin I < 0.012 ng/ml Total Protein 7.6 gm/dl (6.3-8.2) Albumin 4.5 g/dl (3.5-5.0) Amylase Level 78 U/L (0-110) Lipase 27 U/L (23-300) Chemistry Test 11/08/17 15:55 11/08/17 16:58 Urine Color Yellow Urine Clarity Clear Urine pH 6.0 pH (4.8-9.5) Urine Specific Selmer 1.024 Urine Protein Negative mg/dL (NEGATIVE) Urine Glucose (UA) Negative mg/dL (NEGATIVE) Urine Ketones Negative mg/dL (NEGATIVE) Urine Blood Negative (NEGATIVE) Urine Nitrite Negative (NEGATIVE) Urine Bilirubin Negative (NEGATIVE) Urine Urobilinogen Negative mg/dL (0.2-1.9) Urine Leukocyte Esterase Negative (NEGATIVE) Urine RBC None /HPF (0-2/HPF) Urine WBC <1 /HPF (0-5/HPF) Urine Squamous Epithelial Cells None /LPF (</=FEW) Urine Bacteria Negative /HPF (NONE-FEW) Urine Mucus None /HPF (NONE-FEW) White Blood Count 6.8 k/uL (4.5-11.0) Red Blood Count 5.09 M/uL (4.00-5.60) Hemoglobin 17.0 g/dL (14.0-18.0) Hematocrit 49.4 % (42.0-52.0) Mean Corpuscular Volume 96.9 fL (80.0-96.0) Mean Corpuscular Hemoglobin 33.5 pg (26.0-33.0) Mean Corpuscular Hemoglobin Concent 34.5 g/dL (32.0-36.0) Red Cell Distribution Width 13.5 % (11.5-14.5) Platelet Count 201 K/uL (150-450) Mean Platelet Volume 7.5 fL (7.2-11.1) Neutrophils (%) (Auto) 51.8 % (39.4-72.5) Lymphocytes (%) (Auto) 34.7 % (17.6-49.6) Monocytes (%) (Auto) 8.9 % (4.1-12.4) Eosinophils (%) (Auto) 2.7 % (0.4-6.7) Basophils (%) (Auto) 1.9 % (0.3-1.4) Nucleated RBC Relative Count (auto) 0.0 /100WBC Neutrophils # (Auto) 3.5 K/uL (2.0-7.4) Lymphocytes # (Auto) 2.3 K/uL (1.3-3.6) Monocytes # (Auto) 0.6 K/uL (0.3-1.0) Eosinophils # (Auto) 0.2 K/uL (0.0-0.5) Basophils # (Auto) 0.1 K/uL (0.0-0.1) Nucleated RBC Absolute Count (auto) 0.00 K/uL Glomerular Filtration Rate Calc > 60.0 Calcium Level 10.0 mg/dl (8.4-10.2) Total Bilirubin 0.4 mg/dl (0.2-1.3) Aspartate Amino Transf (AST/SGOT) 40 U/L (0-35) Alanine Aminotransferase (ALT/SGPT) 42 U/L (0-56) Alkaline Phosphatase 84 U/L (0-126) Troponin I < 0.012 ng/ml Total Protein 7.6 gm/dl (6.3-8.2) Albumin 4.5 g/dl (3.5-5.0) Amylase Level 78 U/L (0-110) Lipase 27 U/L (23-300) Urinalysis Test 11/08/17 15:55 Urine Color Yellow Urine Clarity Clear Urine pH 6.0 pH (4.8-9.5) Urine Specific Sel[place] 1.024 Urine Protein Negative mg/dL (NEGATIVE) Urine Glucose (UA) Negative mg/dL (NEGATIVE) Urine Ketones Negative mg/dL (NEGATIVE) Urine Blood Negative (NEGATIVE) Urine Nitrite Negative (NEGATIVE) Urine Bilirubin Negative (NEGATIVE) Urine Urobilinogen Negative mg/dL (0.2-1.9) Urine Leukocyte Esterase Negative (NEGATIVE) Urine RBC None /HPF (0-2/HPF) Urine WBC <1 /HPF (0-5/HPF) Urine Squamous Epithelial Cells None /LPF (</=FEW) Urine Bacteria Negative /HPF (NONE-FEW) Urine Mucus None /HPF (NONE-FEW) EKG/Imaging EKG Interpretation 12 lead EKG: Rhythm: normal sinus rhythm Webster: Rightward axis QRS: normal ST segments: normal Imaging EXAMINATION: CT abdomen and pelvis with IV contrast HISTORY: Abdominal pain. TECHNIQUE: Axial CT images of the abdomen and pelvis were obtained with IV contrast, with coronal and sagittal 2D reconstructed images. One of the following dose optimization techniques was utilized in the performance of this exam: Automated exposure control; adjustment of the mA and/ or kV according to the patient's size; or use of an iterative reconstruction technique. Specific details can be referenced in the facility's radiology CT exam operational policy. Contrast: 75 mL of IV Isovue-370. COMPARISON: 10/17/2017. FINDINGS: Liver: Negative. Gallbladder and bile ducts: Negative. Spleen: Negative. Pancreas: Negative. Adrenal glands: Negative. Kidneys: Negative. No hydronephrosis or urinary calculi. Bowel and peritoneum: The small bowel and colon are normal in caliber, without evidence of obstruction or any focal inflammatory process. No localized bowel wall thickening. Unremarkable appendix in the right lower abdomen. No free fluid or free intraperitoneal air. Pelvic structures: Negative. Lymph node assessment: Negative. Vessels: Negative. Musculoskeletal: Negative. Body wall: Negative. Lung bases: Negative. IMPRESSION: Normal exam. No CT evidence of acute intra-abdominal pathology. Report Dictated By: Earnest Houston MD at 11/08/2017 6:16 PM Report E-Signed By: Earnest Houston MD at 11/08/2017 6:19 PM EXAMINATION: Chest 2 Views HISTORY: Chest pain. COMPARISON: 07/22/2016. FINDINGS: The lungs are clear. No focal consolidation or pleural fluid. No pneumothorax. Normal cardiomediastinal silhouette, with normal heart size and pulmonary vascularity. Visualized osseous structures are unremarkable. IMPRESSION: Negative chest. Report Dictated By: Earnest Houston MD at 11/08/2017 6:19 PM Report E-Signed By: Earnest Houston MD at 11/08/2017 6:20 PM ED Course/Re-evaluation ED Course Patient is admitted and examined, history and physical were obtained. Differential diagnoses were considered. On examination patient was complaining of tenderness to palpation. A CBC, CMP, CT scan of the abdomen and pelvis was done. Lab results were completely unremarkable, no elevated white count, no left shift, no large joint abnormality. CT scan of abdomen and pelvis showed no acute findings. I discussed findings with patient. Patient states that he was unsure that that was correct as he was having some discomfort to the abdomen, she described is inflammation. I informed him that I believe that is likely caused by some inflammation of the musculature of the abdomen. We will go ahead and treat him with anti-inflammatories. He is to follow-up with his primary care provider. Patient verbalized understanding with plan. Decision to Disposition Date: November 08, 2017 Decision to Disposition Time: 18:55 Depart Departure Latest Vital Signs Vital Signs Date Time Temp Pulse Resp B/P (MAP) Pulse Ox O2 Delivery O2 Flow Rate FiO2 11/08/17 19:00 128/68 (88) 11/08/17 18:40 92 93 11/08/17 15:56 98.8 18 Impression: Primary Impression: Abdominal pain Condition: Improved Disposition: HOME OR SELF-CARE New Scripts Ketorolac Tromethamine (KETOROLAC TROMETHAMINE) 10 Mg Tab 10 MG PO Q6H, #20 TAB Prov: GHANSHYAMJOHNSON FNP 11/08/17 Patient Instructions: Abdominal Pain (ED) Additional Instructions: Increase fluid intake. Get plenty of rest. Continue with your current medications. Follow up with Dr. Zuniga as previously scheduled. Follow up with your primary care provider in the next 3-4 days. Return to the ER if condition worsens. Problem Qualifiers Primary Impression: Abdominal pain Abdominal location: lower abdomen, unspecified Qualified Codes: R10.30 - Lower abdominal pain, unspecified JOHNSON MORRISSEY November 08, 2017 16:11
[2017-11-08] MEDS ORDERED: NS(*) 0.9% 1000 ML BAG 1,000 ML IV ONE (16:24)
[2017-11-08] MEDS ORDERED: KETOROLAC 15 MG/ML VIAL IVP ONE (16:25)
[2017-11-08] MEDS ORDERED: ONDANSETRON 4 MG/2 ML VIAL IVP ONE (16:25)
--- NOTE | 2017-11-08 16:34 | EKG ---
FACILITY: [facility] - [place] PATIENT NAME: LEIF SPIVEY : [id number] MR: [id number] V: [id number] EXAM DATE: ORDERING PHYSICIAN: JOHNSON MORRISSEY TECHNOLOGIST: ATA Dumont Reason : CP Blood Pressure : / mmHG Vent. Rate : 100 BPM Atrial Rate : 100 BPM P-R Int : 140 ms QRS Dur : 084 ms QT Int : 310 ms P-R-T Axes : 069 093 054 degrees QTc Int : 399 ms Normal sinus rhythm Rightward axis Borderline ECG When compared with ECG of 22-JUL-2016 12:37, No significant change was found Confirmed by KARRIE CHEW ([id number]) on 11/08/2017 8:46:20 PM Referred By: LEV Confirmed By:KARRIE CHEW
[2017-11-08] MEDS ORDERED: IOPAMIDOL 76% 75 ML INFUS BTL 75 ML ONE (16:48)
[2017-11-08 17:12] LABS: PLATELET COUNT, AUTOMATED 201 K/uL (150-450)
--- NOTE | 2017-11-08 18:24 | RADIOLOGY IMAGING REPORT ---
FACILITY: [facility] PATIENT NAME: Khari Powers : 1995 MR: [id number] V: [id number] EXAM DATE: ORDERING PHYSICIAN: JOHNSON MORRISSEY TECHNOLOGIST: Location: [facility] [place] Patient: Khari Powers : 1995 Visit/Account:[id number] Date of Sevice: 11/08/2017 EXAMINATION: CT abdomen and pelvis with IV contrast HISTORY: Abdominal pain. TECHNIQUE: Axial CT images of the abdomen and pelvis were obtained with IV contrast, with coronal a nd sagittal 2D reconstructed images. One of the following dose optimization techniques was utilized in the performance of this exam: Autom ated exposure control; adjustment of the mA and/or kV according to the patient's size; or use of an i terative reconstruction technique. Specific details can be referenced in the facility's radiology C T exam operational policy. Contrast: 75 mL of IV Isovue-370. COMPARISON: 10/17/2017. FINDINGS: Liver: Negative. Gallbladder and bile ducts: Negative. Spleen: Negative. Pancreas: Negative. Adrenal glands: Negative. Kidneys: Negative. No hydronephrosis or urinary calculi. Bowel and peritoneum: The small bowel and colon are normal in caliber, without evidence of obstructi on or any focal inflammatory process. No localized bowel wall thickening. Unremarkable appendix in th e right lower abdomen. No free fluid or free intraperitoneal air. Pelvic structures: Negative. Lymph node assessment: Negative. Vessels: Negative. Musculoskeletal: Negative. Body wall: Negative. Lung bases: Negative. IMPRESSION: Normal exam. No CT evidence of acute intra-abdominal pathology. Report Dictated By: Earnest Houston MD at 11/08/2017 6:16 PM Report E-Signed By: Earnest Houston MD at 11/08/2017 6:19 PM WSN:[id number]
--- NOTE | 2017-11-08 18:24 | RADIOLOGY IMAGING REPORT ---
FACILITY: [facility] [place] PATIENT NAME: Khari Powers : 1995 MR: [id number] V: [id number] EXAM DATE: ORDERING PHYSICIAN: JOHNSON MORRISSEY TECHNOLOGIST: Location: [facility] [place] Patient: Khari Powers : 1995 Visit/Account:[id number] Date of Sevice: 11/08/2017 EXAMINATION: Chest 2 Views HISTORY: Chest pain. COMPARISON: 07/22/2016. FINDINGS: The lungs are clear. No focal consolidation or pleural fluid. No pneumothorax. Normal cardiomedias tinal silhouette, with normal heart size and pulmonary vascularity. Visualized osseous structures ar e unremarkable. IMPRESSION: Negative chest. Report Dictated By: Earnest Houston MD at 11/08/2017 6:19 PM Report E-Signed By: Earnest Houston MD at 11/08/2017 6:20 PM WSN:[id number]
[2017-11-08] MEDS ORDERED: KET10 PO (18:53)
[2017-11-08 19:00] VITALS: BP 128/68
== END 2017-11-08 19:07 | disposition home or self-care (01) ==
LOC: ER 15:59
DX: R10.30 Lower abdominal pain, unspecified (principal); F17.210 Nicotine dependence, cigarettes, uncomplicated
CPT/HCPCS: 71046; 74177; 81001; 82150; 83690; 84484; 85025; 93005; 96361; 96374; 96375; 99284; J1885; J2405; J7030; Q9967; 82040; 82247; 82310; 82374; 82435; 82565; 82947; 84075; 84132; 84155; 84295; 84450; 84460; 84520

== ENCOUNTER 2018-02-21 16:44 | Observation (INO) | payer OTHER ==
[~2018-02-21] VITALS: Ht 188 cm; Wt 68.0 kg
[~2018-02-21 16:44] MED LIST changes: -Acetaminophen/Hydrocodone PO; -NICO1PAT88 TD
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
[2018-02-21] MEDS ORDERED: DIPHTH/TETANUS/ACEL. PERTUSSIS IM ONE (16:50)
[2018-02-21] MEDS ORDERED: ONDANSETRON 4 MG/2 ML VIAL IVP ONE (16:50)
[2018-02-21] MEDS ORDERED: NS(*) 0.9% 1000 ML BAG 1,000 ML IV ONE (16:50)
[2018-02-21 17:26] LABS: PLATELET COUNT, AUTOMATED 230 K/uL (150-450)
[2018-02-21] MEDS ORDERED: DIPHTH/TETANUS/ACEL. PERTUSSIS IM ONLY ONE (17:30)
[2018-02-21 17:39] LABS: INR 0.92
[2018-02-21] MEDS ORDERED: LR(*) 1000 ML BAG 1,000 ML IV PRN (18:20)
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
[2018-02-21] MEDS ORDERED: fentaNYL CITR 100 MCG/2 ML AMP IVP ONE (18:25)
[2018-02-21] MEDS ORDERED: NICOTINE 21 MG/24 HR PATCH TD ONE (19:10)
[2018-02-21] MEDS ORDERED: HYDROMORPHONE HCL 1 MG/ML SYRINGE IVP ONE (19:25)
[2018-02-21 20:12] VITALS: BP 120/73
[2018-02-21] MEDS ORDERED: HYDROmorphone HCL 2 MG/ML SDV IVP PRN (20:40)
[2018-02-21] MEDS: LR(*) 1000 ML BAG 1,000 ML IV PRN (21:34)
[2018-02-21 23:00] VITALS: BP 101/60
[2018-02-22] MEDS: HYDROmorphone HCL 2 MG/ML SDV IVP PRN ×7 (02:18→21:27)
[2018-02-22 04:08] VITALS: BP 120/73
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
[2018-02-22] MEDS: LR(*) 1000 ML BAG 1,000 ML IV PRN ×3 (05:38→22:11)
[2018-02-22 07:09] VITALS: BP 123/74
[2018-02-22] MEDS: NICOTINE 21 MG/24 HR PATCH TD SCH (08:59)
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
[2018-02-22 10:09] VITALS: Ht 188 cm; Wt 68.0 kg
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
[2018-02-22 10:49] VITALS: BP 118/76
[2018-02-22 15:04] VITALS: BP 119/83
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
[2018-02-22 18:54] VITALS: BP 119/75
[2018-02-22 22:53] VITALS: BP 132/84
[2018-02-23] MEDS: HYDROmorphone HCL 2 MG/ML SDV IVP PRN ×2 (00:30→05:27)
[2018-02-23] MEDS: LR(*) 1000 ML BAG 1,000 ML IV PRN (06:11)
[2018-02-23 07:23] VITALS: BP 111/63
[2018-02-23] MEDS ORDERED: ACETAMINOPHEN 500 MG TAB PO PRN (07:55)
[2018-02-23] MEDS ORDERED: APAP/HYDROCODONE 325/10 TAB PO PRN ×2 (08:15→10:10)
[2018-02-23] MEDS: NICOTINE 21 MG/24 HR PATCH TD SCH (08:30)
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
[2018-02-23 10:52] VITALS: BP 127/88
[2018-02-23] MEDS ORDERED: Acetaminophen/Hydrocodone PO (10:52)
[2018-02-23] MEDS ORDERED: NICO1PAT88 TD (10:52)
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
== END 2018-02-23 11:35 | disposition home or self-care (01) ==
LOC: ER 16:53 → INTOOBSV 19:17 → MERGE 19:17 → MED 19:17
PROVIDERS: ADMIT Surgery; ATTEND Surgery
DX: F10.920 Alcohol use, unspecified with intoxication, uncomplicated (principal); S22.41XA Multiple fractures of ribs, right side, initial encounter for closed fracture; S42.021A Displaced fracture of shaft of right clavicle, initial encounter for closed fracture; S27.321A Contusion of lung, unilateral, initial encounter; V89.2XXA Person injured in unspecified motor-vehicle accident, traffic, initial encounter; S01.81XA Laceration without foreign body of other part of head, initial encounter
CPT/HCPCS: 12011; 36415; 70450; 70486; 71045; 71260; 72125; 73030; 74177; 80305; 80320; 81001; 82150; 83605; 83690; 85025; 85610; 85730; 90471; 90715; 96374; 97165; 99001; 99291; G0378; J1170; J3010; J7030; J7120; Q9967; 82040; 82247; 82310; 82374; 82435; 82565; 82947; 84075; 84132; 84155; 84295; 84450; 84460; 84520

== ENCOUNTER → 2018-02-21 | Outpatient (CLI) | payer SELFPAY ==
[~2018-02-21] MED LIST changes: +Acetaminophen/Hydrocodone PO; +KET10 PO; +NICO1PAT88 TD
[2018-02-22 10:09] VITALS: BMI 19.3
== END ==
LOC: AMB 16:16
PROVIDERS: ATTEND Nurse Practitioner
DX: M25.511 Pain in right shoulder (principal); M54.6 Pain in thoracic spine; V47.5XXA Car driver injured in collision with fixed or stationary object in traffic accident, initial encounter; W22.11XA Striking against or struck by driver side automobile airbag, initial encounter; Y92.411 Interstate highway as the place of occurrence of the external cause
CPT/HCPCS: A0425; A0427

== ENCOUNTER 2018-02-24 12:44 | Emergency (ER) | payer SELFPAY ==
[2018-02-22 10:09] VITALS: Wt 68.0 kg
[~2018-02-24 12:44] MED LIST changes: +Acetaminophen/Hydrocodone PO; +NICO1PAT88 TD
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
[2018-02-24] MEDS ORDERED: APAP/HYDROCODONE 325/5 TAB PO ONE (13:15)
[2018-02-24] MEDS ORDERED: LIDOCAINE 5% PATCH TP SCH (13:15)
[2018-02-24] MEDS ORDERED: ONDANSETRON 4 MG ODT TABDP SL ONE (13:15)
--- NOTE | 2018-02-24 15:20 | RADIOLOGY IMAGING REPORT ---
FACILITY: [facility] [place] PATIENT NAME: Khari Powers : 1995 MR: [id number] V: [id number] EXAM DATE: ORDERING PHYSICIAN: SUZIE BONILLA TECHNOLOGIST: Location: [facility] Patient: Khari Powers : 1995 Visit/Account:[id number] Date of Sevice: 02/24/2018 EXAMINATION: Chest 2 Views Right rib series HISTORY: History of rib fracture with 3 injury today. COMPARISON: Chest radiograph 02/22/2018. CT chest 02/21/2018. FINDINGS: Stable displaced oblique fracture of the mid right clavicle. Stable displaced fracture of the lateral right third rib. Stable nondisplaced fractures of the lateral right fourth and fifth ribs. No other new osseous findings in the chest. No new rib fracture is visualized. The lungs are clear. No pleural effusion or pneumothorax. Normal cardiomediastinal silhouette. IMPRESSION: 1. Right clavicle and right rib fractures appear stable. 2. No other new findings in the chest. Report Dictated By: Earnest Houston MD at 02/24/2018 3:12 PM Report E-Signed By: Earnest Houston MD at 02/24/2018 3:17 PM WSN:[id number]
--- NOTE | 2018-02-24 15:20 | RADIOLOGY IMAGING REPORT ---
FACILITY: [facility] PATIENT NAME: Khari Powers : 1995 MR: [id number] V: [id number] EXAM DATE: ORDERING PHYSICIAN: SUZIE BONILLA TECHNOLOGIST: Location: [facility] [place] Patient: Khari Powers : 1995 Visit/Account:[id number] Date of Sevice: 02/24/2018 EXAMINATION: Chest 2 Views Right rib series HISTORY: History of rib fracture with 3 injury today. COMPARISON: Chest radiograph 02/22/2018. CT chest 02/21/2018. FINDINGS: Stable displaced oblique fracture of the mid right clavicle. Stable displaced fracture of the lateral right third rib. Stable nondisplaced fractures of the lateral right fourth and fifth ribs. No other new osseous findings in the chest. No new rib fracture is visualized. The lungs are clear. No pleural effusion or pneumothorax. Normal cardiomediastinal silhouette. IMPRESSION: 1. Right clavicle and right rib fractures appear stable. 2. No other new findings in the chest. Report Dictated By: Earnest Houston MD at 02/24/2018 3:12 PM Report E-Signed By: Earnest Houston MD at 02/24/2018 3:17 PM WSN:[id number]
[2018-02-24 15:42] VITALS: BP 109/79
[2018-02-24] MEDS ORDERED: PATCH REMOVAL 1 EA TOP SCH (21:00)
== END 2018-02-24 15:42 | disposition home or self-care (01) ==
LOC: ER 12:56
DX: S22.41XD Multiple fractures of ribs, right side, subsequent encounter for fracture with routine healing (principal); S42.024D Nondisplaced fracture of shaft of right clavicle, subsequent encounter for fracture with routine healing; S20.20XA Contusion of thorax, unspecified, initial encounter
CPT/HCPCS: 71046; 71100; 99283; S0119

== ENCOUNTER 2018-02-26 11:58 | Emergency (ER) | payer SELFPAY ==
[2018-02-22 10:09] VITALS: Wt 68.0 kg
[2018-02-26 12:02] VITALS: BP 135/90
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
== END 2018-02-26 12:41 | disposition home or self-care (01) ==
LOC: ER 12:05
DX: S01.81XD Laceration without foreign body of other part of head, subsequent encounter (principal)
CPT/HCPCS: 99281